=== PATIENT | female | born 1960 | race Caucasian/White ===

== ENCOUNTER → 2016-08-15 | Outpatient (CLI) | payer OTHER ==
[~2016-08-15] MED LIST: AMITRIPTYLINE HCL PO; ASPI81TA85 PO; CELE40TA PO; CLAR10CA3 PO; NIAC50TA PO; PAME50CA PO; PRAV40TA2 PO; ZIAC10TA PO
--- NOTE | 2016-08-24 10:43 | SLEEPHOME ---
DATE OF PROCEDURE: 08/15/2016 INTERPRETATION: A home sleep test was done to evaluate sleep apnea syndrome symptoms consisting of excessive daytime sleepiness, insomnia, snoring, morning headaches, and nonrestorative sleep. He also has the comorbidity of hypertension. Portable home monitoring was performed using a NOX-T3 respiratory monitoring device. Continuous record was supposed to be made of pulse, oxygen saturation, air flow, chest and abdominal strain, and body position. Recording time was 10 hours with the time in bed being 7 hours and 54 minutes. During this interval, a minimum of 93 respiratory events were identified of 10 seconds in duration for a respiratory event index (AYAN) of 11.8. However, this study was severely limited in that there was no pulse or oximetry data available. Therefore, no hypopneas could be considered in these results. We also do not know his baseline saturation or the minimal recorded oxygen saturation value. We do not know the pulse rate. He spent the majority of the study in the lateral position, though he did have some supine time. IMPRESSION: Abnormal home sleep test with a minimum AYAN of 11.8. As noted above, this study was severely limited because of no recording oximetry or pulse data. That means that the index suggests at least mild disease, but I suspect that it is likely higher as no hypopneas were counted. I am concerned about the patient's ability to understand the setup of this type of home study. RECOMMENDATIONS: She has significant symptoms, as well as hypertension, as well as a very limited study that suggests at least mild sleep apnea. I feel that she should [facility] formal evaluation of pressure therapy. I feel this is critical as we need to know her cardiac status, as well as her oxygen status and neither of these would be available with an auto titration device. Pending this intervention, alcohol and sedative usage should be avoided, and care should be taken when operating motor vehicles.
== END ==
LOC: M SLEEP HO 11:57
PROVIDERS: ATTEND Nurse Practitioner Adult Health
DX: G47.30 Sleep apnea, unspecified (principal); I10 Essential (primary) hypertension

== ENCOUNTER → 2016-09-24 | Outpatient (CLI) | payer OTHER ==
--- NOTE | 2016-09-27 08:10 | SLEEPCENT ---
DATE OF PROCEDURE: 09/24/2016 REFERRING PROVIDER: Dr. Kenton Cade INTERPRETATION: Nocturnal polysomnography was performed for the determination of pressure therapy in this patient with at least mild, likely significantly higher obstructive sleep apnea based on home sleep study. Respiratory disturbance index (RDI) was 11.8, but there was no oximetry or pulse data available, so all hypopneas were missed. She had associated symptoms of excessive daytime sleepiness, insomnia, snoring, morning headaches, nonrestorative sleep. A total of 8 hours and 12 minutes of data was reviewed with 438 minutes of sleep observed. Sleep latency was 13.5 minutes. Rapid eye movement (REM) latency was 92.5 minutes. All stages of sleep were observed. Sleep efficiency was 91.9%. She had a very high REM percentage at 41.6%, suggesting rebound REM. Electrocardiogram (EKG) showed what was likely sinus irregularity with an average heart rate of 70 beats per minute. Speeding and slowing was noted surrounding some respiratory events. No epileptiform discharge observed. The patient had been fit with a Resmed Air Fit F20 full face mask of medium size, 4 cm of water pressure had been applied to the circuit, and the lights were dimmed. CPAP was taken to a high of 13 cm of pressure. This pressure appeared to be the best of the pressures that were studied, though it is difficult to tell if it is optimal. On this pressure, her apnea-hypopnea index (AHI) was 3.0 and her KAUR was 0.2. Oxygen saturation jordan was 81%, though a very small amount of time was spent with the saturations less than 90%. Periodic limb movement index was elevated at 48. REM sleep was seen on this pressure. No supine sleep was seen throughout the titration. IMPRESSION: 1. Obstructive sleep apnea, at least mild and likely worse than was suggested by her AYAN, as hypopnea data was missing. She appears to be reasonably palliated on 13 cm of water pressure, though it is not clear at this time that this is optimal. No supine sleep was seen during the titration. 2. Periodic limb movements, moderate. RECOMMENDATIONS: Recommend continuation of CPAP therapy at 13 cm of water pressure via a medium Resmed Air Fit F20 full face mask or mask of her preference. After she is tolerating CPAP therapy, I would recommend an auto CPAP to evaluate the SpO2 waveform to see if there is suggestion of ongoing events, as well as to determine the absolute oxygenation on therapy.
== END ==
LOC: M SLEEP 19:27
PROVIDERS: ATTEND Internal Medicine Pulmonary Disease
DX: G47.33 Obstructive sleep apnea (adult) (pediatric) (principal)

== ENCOUNTER → 2017-01-31 | Outpatient (CLI) | payer MEDICARE, OTHER ==
[~2017-01-31] MED LIST changes: +ALBU0.63 INH; +AMLO25TA PO; +DULE100A IN; +IPRASOL4 IN; +MUCI600T31 PO; +OMEP40CA2 PO; +SITA50TAB PO; +VENTAER IN; +ZONI25CA2 PO
--- NOTE | 2017-01-31 14:06 | REP ---
LOW DOSE LUNG SCREENING CT: Low dose lung screening CT exam is performed in the axial plane without IV contrast. Comparison is made with prior CT of the chest 10/04/2015. There are biapical bullous changes appearing similar to the prior study. Diffuse interstitial fibrotic change is noted. No suspicious nodular opacities are seen. There is no evidence of pleural effusion bilaterally. The heart is mildly enlarged. The mediastinal contour appears unchanged. There are calcifications of the thoracic aorta. There are degenerative changes of the spine. IMPRESSION: Chronic bullous and emphysematous changes in the upper lobes. Chronic fibrosis without suspicious nodular opacity. Recommend followup screening CT in 1 year. Signed by Darell Cerna MD 01/31/2017 05:36 P
== END ==
LOC: M RAD 11:24
PROVIDERS: ATTEND Internal Medicine Pulmonary Disease
DX: Z87.891 Personal history of nicotine dependence (principal)

== ENCOUNTER → 2017-04-05 | Outpatient (REF) | payer MEDICARE, MEDICAID ==
[2017-04-05 14:07] LABS: IMMUNOGLOBULIN G 1530 MG/DL (681-1648); IMMUNOGLOBULIN M 23.6 MG/DL (40-230); TOTAL PROTEIN 8.4 GM/DL (6.4-8.2)
[2017-04-07 00:06] LABS: BETA 2 MICROGLOBULIN 2.8 mg/L (0.6-2.4); FREE KAPPA LIGHT CHAINS SERUM 37.6 mg/L (3.3-19.4); FREE LAMBDA LIGHT CHAINS SERUM 53.1 mg/L (5.7-26.3); KAPPA/LAMBDA RATIO SERUM 0.71 (0.26-1.65)
[2017-04-10 11:16] LABS: ALBUMIN 3.78 GM/DL (3.29-5.55); GAMMA GLOBULIN % 18.9 % (11.1-18.8)
== END ==
LOC: M LAB REF 12:47
PROVIDERS: ATTEND Internal Medicine Medical Oncology
DX: D47.2 Monoclonal gammopathy (principal)

== ENCOUNTER → 2017-04-16 | Outpatient (CLI) | payer MEDICARE, MEDICAID | LOC: M RAD 11:18 | DX: D47.2 Monoclonal gammopathy (principal) | CPT/HCPCS: 70260 ==

== ENCOUNTER → 2017-04-18 | Outpatient (REF) | payer MEDICARE, MEDICAID ==
[2017-04-18 13:32] LABS: URINE TOTAL PROTEIN 56.8 MG/DL (0-12)
[2017-04-18 13:50] LABS: TOTAL PROTEIN 24 HOUR URINE 979.8 MG/24HR (50-150); TOTAL VOLUME, URINE 1725 ML
== END ==
LOC: M LAB REF 12:18
DX: D72.818 Other decreased white blood cell count (principal)
CPT/HCPCS: 81050

== ENCOUNTER 2017-06-02 16:33 | Emergency (ER) | payer MEDICARE, MEDICAID ==
[2017-06-02 18:37] LABS: BASO # 0.1 10^3/uL (0.0-0.2); BASO % 0.4 % (0.0-1.0); EOS # 0.1 10^3/uL (0.0-0.50); EOS % 0.7 % (0.0-3.0); HEMATOCRIT 42.6 % (36.0-47.0); HEMOGLOBIN 14.4 g/dl (12.0-16.0); IMMATURE GRANULOCYTE % 0.6 % (0-3.0); LYMPH # 2.7 10^3/uL (1.5-4.5); MEAN CORPUSCULAR HEMOGLOBIN 29.4 pg (27.0-33.0); MEAN CORPUSCULAR HGB CONC 33.8 g/dl (32.0-36.5); MEAN CORPUSCULAR VOLUME 86.9 fl (80.0-96.0); MONO % 6.4 % (0.0-5.0); NEUTROPHILS # 11.2 10^3/uL (1.8-7.7); NEUTROPHILS % 73.9 % (36.0-66.0); PLATELET COUNT, AUTOMATED 471 10^3/uL (150-450); RED CELL DISTRIBUTION WIDTH 16.2 % (11.5-14.5); WHITE BLOOD COUNT 15.1 10^3/uL (4.0-10.0)
[2017-06-02 18:59] LABS: ALBUMIN 3.5 GM/DL (3.2-5.2); ALBUMIN/GLOBULIN RATIO 0.69 (1.00-1.93); ALKALINE PHOSPHATASE 97 U/L (45-117); ALT/SGPT 34 U/L (12-78); ANION GAP 13 MEQ/L (8-16); AST/SGOT 27 U/L (7-37); BILIRUBIN,DIRECT 0.1 MG/DL (0.0-0.2); BILIRUBIN,TOTAL 0.4 MG/DL (0.2-1.0); BLOOD UREA NITROGEN 18 MG/DL (7-18); CALCIUM LEVEL 8.8 MG/DL (8.5-10.1); CARBON DIOXIDE LEVEL 25 MEQ/L (21-32); CHLORIDE LEVEL 100 MEQ/L (98-107); CREATININE FOR GFR 1.36 MG/DL (0.55-1.30); GLOMERULAR FILTRATION RATE 42.4 (>51); GLUCOSE, FASTING 190 MG/DL (70-100); LIPASE 215 U/L (73-393); POTASSIUM SERUM 4.1 MEQ/L (3.5-5.1); SODIUM LEVEL 138 MEQ/L (136-145); TOTAL PROTEIN 8.6 GM/DL (6.4-8.2)
[2017-06-02 19:07] LABS: INFLUENZA A AMPLIFICATION NEGATIVE (NEGATIVE); INFLUENZA B AMPLIFICATION NEGATIVE (NEGATIVE)
[2017-06-02] MEDS: AUGMENTIN 875 MG TAB PO (21:56)
[2017-06-02] MEDS: predniSONE 20 MG TAB PO (21:57)
== END 2017-06-02 22:13 | disposition home or self-care (01) ==
LOC: M ED 16:33
DX: J32.9 Chronic sinusitis, unspecified (principal); J44.9 Chronic obstructive pulmonary disease, unspecified; Z79.51 Long term (current) use of inhaled steroids; Z79.899 Other long term (current) drug therapy; Z79.82 Long term (current) use of aspirin; Z88.2 Allergy status to sulfonamides; Z88.1 Allergy status to other antibiotic agents
CPT/HCPCS: 83690

== ENCOUNTER → 2017-06-21 | Outpatient (CLI) | payer MEDICARE ==
[2017-06-21 10:40] LABS: BASO # 0.1 10^3/uL (0.0-0.2); BASO % 0.4 % (0.0-1.0); EOS # 0.2 10^3/uL (0.0-0.50); HEMATOCRIT 36.4 % (36.0-47.0); HEMOGLOBIN 11.8 g/dl (12.0-16.0); IMMATURE GRANULOCYTE % 0.5 % (0-3.0); LYMPH # 3.2 10^3/uL (1.5-4.5); LYMPH % 20.8 % (24.0-44.0); MEAN CORPUSCULAR HEMOGLOBIN 28.9 pg (27.0-33.0); MEAN CORPUSCULAR HGB CONC 32.4 g/dl (32.0-36.5); MONO # 0.9 10^3/uL (0.0-0.8); MONO % 6.1 % (0.0-5.0); NEUTROPHILS # 10.9 10^3/uL (1.8-7.7); NEUTROPHILS % 71.2 % (36.0-66.0); PLATELET COUNT, AUTOMATED 450 10^3/uL (150-450); RED BLOOD COUNT 4.09 10^6/uL (4.00-5.40); RED CELL DISTRIBUTION WIDTH 16.3 % (11.5-14.5); WHITE BLOOD COUNT 15.3 10^3/uL (4.0-10.0)
[2017-06-21 10:58] LABS: ALBUMIN 2.7 GM/DL (3.2-5.2); ALBUMIN/GLOBULIN RATIO 0.64 (1.00-1.93); ALKALINE PHOSPHATASE 81 U/L (45-117); ALT/SGPT 19 U/L (12-78); ANION GAP 7 MEQ/L (8-16); AST/SGOT 14 U/L (7-37); BILIRUBIN,TOTAL 0.5 MG/DL (0.2-1.0); BLOOD UREA NITROGEN 9 MG/DL (7-18); CALCIUM LEVEL 8.4 MG/DL (8.5-10.1); CARBON DIOXIDE LEVEL 31 MEQ/L (21-32); CHLORIDE LEVEL 100 MEQ/L (98-107); CREATININE FOR GFR 0.85 MG/DL (0.55-1.30); GLOMERULAR FILTRATION RATE > 60.0 (>51); GLUCOSE, FASTING 195 MG/DL (70-100); POTASSIUM SERUM 3.7 MEQ/L (3.5-5.1); SODIUM LEVEL 138 MEQ/L (136-145); TOTAL PROTEIN 6.9 GM/DL (6.4-8.2)
== END ==
LOC: M LAB 10:11
DX: R50.9 Fever, unspecified (principal)
CPT/HCPCS: 80053

== ENCOUNTER → 2017-08-16 | Outpatient (CLI) | payer MEDICARE | LOC: M RAD 13:12 | DX: R06.02 Shortness of breath (principal) | CPT/HCPCS: 71046 ==

== ENCOUNTER → 2017-08-30 | Outpatient (CLI) | payer MEDICARE ==
[~2017-08-30] MED LIST changes: -ALBU0.63 INH; -AMITRIPTYLINE HCL PO; -AMLO25TA PO; -ASPI81TA85 PO; -CELE40TA PO; -CLAR10CA3 PO; -DULE100A IN; -IPRASOL4 IN; +ISOVUE-370 76% 100ML VIAL (Q9967) As Ordered; -MUCI600T31 PO; -NIAC50TA PO; -OMEP40CA2 PO; -PAME50CA PO; -PRAV40TA2 PO; -SITA50TAB PO; -VENTAER IN; -ZIAC10TA PO; -ZONI25CA2 PO
== END ==
LOC: M RAD 11:24
DX: Z01.812 Encounter for preprocedural laboratory examination (principal); R91.8 Other nonspecific abnormal finding of lung field; I51.7 Cardiomegaly; J90 Pleural effusion, not elsewhere classified; R06.02 Shortness of breath
CPT/HCPCS: Q9967

== ENCOUNTER → 2017-08-30 | Outpatient (REF) | payer MEDICARE ==
[2017-08-30 12:42] LABS: CREATININE FOR GFR 1.12 MG/DL (0.55-1.30)
[2017-08-30 12:42] LABS: BLOOD UREA NITROGEN 20 MG/DL (7-18)
== END ==
LOC: M LAB REF 12:06
DX: Z01.812 Encounter for preprocedural laboratory examination (principal); R06.02 Shortness of breath

== ENCOUNTER → 2017-09-02 | Outpatient (REF) | payer MEDICARE ==
[2017-09-02 13:43] LABS: SLIDE REVIEW Report; SOURCE PERIPHERAL SMEAR; TOTAL PROTEIN,RANDOM URINE 72.5 MG/DL (0.0-12.0); URINE TOTAL PROTEIN 72.5 MG/DL (0-12)
[2017-09-02 14:08] LABS: IMMUNOGLOBULIN G 1170 MG/DL (681-1648); TOTAL PROTEIN 7.5 GM/DL (6.4-8.2)
[2017-09-02 14:24] LABS: IMMUNOGLOBULIN M 19.9 MG/DL (40-230)
[2017-09-03 13:41] LABS: ALBUMIN % 46.6 % (55.8-66.1); ALPHA-1-GLOBULIN % 4.4 % (2.9-4.9); ALPHA-1-GLOBULINS 0.33 GM/DL (0.17-0.41); ALPHA-2-GLOBULINS 1.02 GM/DL (0.42-0.99); ALPHA-2-GLOBULINS % 13.6 % (7.1-11.8); BETA-1-GLOBULINS 0.62 GM/DL (0.28-0.60); BETA-1-GLOBULINS % 8.3 % (4.7-7.2); BETA-2-GLOBULINS 0.77 GM/DL (0.19-0.55); BETA-2-GLOBULINS % 10.2 % (3.2-6.5); GAMMA GLOBULIN % 16.9 % (11.1-18.8); GAMMA GLOBULINS 1.27 GM/DL (0.65-1.58)
[2017-09-04 00:06] LABS: FREE KAPPA LIGHT CHAINS SERUM 30.7 mg/L (3.3-19.4); FREE LAMBDA LIGHT CHAINS SERUM 37.8 mg/L (5.7-26.3); KAPPA/LAMBDA RATIO SERUM 0.81 (0.26-1.65)
[2017-09-04 00:06] LABS: BETA 2 MICROGLOBULIN 2.6 mg/L (0.6-2.4)
[2017-09-05 14:39] LABS: UPEP INTERPRETATION NO M-SPIKE NOTED; URINE VOLUME RANDOM ML
== END ==
LOC: M LAB REF 12:17
DX: D47.2 Monoclonal gammopathy (principal)
CPT/HCPCS: 84165

== ENCOUNTER → 2017-10-05 | Outpatient (CLI) | payer MEDICARE | LOC: M RAD 10:52 | DX: D15.2 Benign neoplasm of mediastinum (principal); R91.8 Other nonspecific abnormal finding of lung field | CPT/HCPCS: 71550 ==

== ENCOUNTER → 2017-11-06 | Outpatient (REF) | payer MEDICARE, OTHER ==
[2017-11-06 13:55] LABS: FERRITIN 76 NG/ML (8-252); IRON (FE) 75 UG/DL (50-170); PERCENT SATURATION 16.8 % (13.2-45.0); TOTAL IRON BINDING CAPACITY 446 UG/DL (250-450)
[2017-11-06 14:35] LABS: VITAMIN B12 LEVEL 260 PG/ML (247-911)
== END ==
LOC: M LAB REF 13:13
DX: D47.2 Monoclonal gammopathy (principal); D72.829 Elevated white blood cell count, unspecified; D47.3 Essential (hemorrhagic) thrombocythemia; Z90.81 Acquired absence of spleen; Z86.718 Personal history of other venous thrombosis and embolism; Z87.891 Personal history of nicotine dependence
CPT/HCPCS: 83550

== ENCOUNTER → 2017-11-21 | Outpatient (REF) | payer MEDICARE | LOC: M LAB REF 12:55 | DX: J44.9 Chronic obstructive pulmonary disease, unspecified (principal) | CPT/HCPCS: 87205 ==

== ENCOUNTER → 2017-11-29 | Outpatient (CLI) | payer MEDICARE ==
[2017-11-29 12:08] LABS: HEMOGLOBIN 13.9 g/dl (12.0-15.5); MEAN CORPUSCULAR HGB CONC 32.3 g/dl (32.0-36.5); MEAN CORPUSCULAR VOLUME 89.6 fl (80.0-96.0); PLATELET COUNT, AUTOMATED 476 10^3/uL (150-450); RED CELL DISTRIBUTION WIDTH 16.8 % (11.5-14.5); WHITE BLOOD COUNT 10.6 10^3/uL (4.0-10.0)
[2017-11-29 12:23] LABS: APPEARANCE, URINE HAZY (CLEAR); BACTERIA, URINE AUTO NEGATIVE (NEGATIVE); BILIRUBIN, URINE AUTO NEGATIVE (NEGATIVE); BLOOD, URINE BLOOD NEGATIVE (NEGATIVE); COLOR, URINE YELLOW (YELLOW); GLUCOSE, URINE (UA) AUTO NEGATIVE (NEGATIVE); KETONE, URINE AUTO NEGATIVE (NEGATIVE); LEUKOCYTE ESTERASE, URINE AUTO NEGATIVE (NEGATIVE); MUCUS, URINE SMALL (NEGATIVE); NITRITE, URINE AUTO NEGATIVE (NEGATIVE); PROTEIN, URINE AUTO 2+ mg/dL (NEGATIVE); RBC, URINE AUTO 5 /HPF (0-3); SPECIFIC GRAVITY URINE AUTO 1.008 (1.002-1.035); SQUAMOUS EPITHELIAL CELL UR AU 5 /HPF (0-6); UROBILINOGEN, URINE AUTO 0.2 mg/dL (0.0-2.0); WBC, URINE AUTO 2 /HPF (0-3)
[2017-11-29 12:27] LABS: INR 1.04; PROTHROMBIN TIME 13.7 SECONDS (12.1-14.4)
[2017-11-29 12:33] LABS: ABG BASE EXCESS 0.8 (-2.0-2.0); ABG HCO3 24.2 MEQ/L (22.0-26.0); ABG O2 SATURATION 94.4 % (95.0-99.0); ABG PARTIAL PRESSURE CO2 34.5 mmHg (35.0-45.0); ABG PARTIAL PRESSURE O2 105.6 mmHg (75.0-100.0); ABG STANDARD HCO3 25.2 MEQ/L (22.0-26.0); ABG TOTAL CO2 25.2 MEQ/L (22.0-29.0); ABG pH (ARTERIAL) 7.463 UNITS (7.350-7.450)
[2017-11-29 12:34] LABS: ANION GAP 9 MEQ/L (8-16); BLOOD UREA NITROGEN 24 MG/DL (7-18); CALCIUM LEVEL 9.3 MG/DL (8.5-10.1); CARBON DIOXIDE LEVEL 28 MEQ/L (21-32); CHLORIDE LEVEL 103 MEQ/L (98-107); CREATININE FOR GFR 1.24 MG/DL (0.55-1.30); GLOMERULAR FILTRATION RATE 47.1 (>51); GLUCOSE, FASTING 114 MG/DL (70-100); PARTIAL THROMBOPLASTIN TIME 27.6 SECONDS (25.4-37.6); SODIUM LEVEL 140 MEQ/L (136-145)
== END ==
LOC: M ADMPAT 10:27
DX: Z01.818 Encounter for other preprocedural examination (principal); J84.10 Pulmonary fibrosis, unspecified; I51.7 Cardiomegaly; J43.9 Emphysema, unspecified
CPT/HCPCS: 71046

== ENCOUNTER 2017-12-03 10:49 | Inpatient (IN) | payer MEDICARE ==
[2017-12-03 11:50] LABS: BEDSIDE GLUCOSE 136 MG/DL (70-105)
[2017-12-03] MEDS ORDERED: fentaNYL 100 MCG/2 ML INJECTION (J3010) As Ordered ×2 (12:31→12:51)
[2017-12-03] MEDS ORDERED: MIDAZOLAM INJ 2 MG/2 ML VIAL (J2250) As Ordered ×3 (12:31→13:20)
[2017-12-03] MEDS ORDERED: ROCURONIUM BROMIDE 50 MG/5 ML VIAL As Ordered (12:45)
[2017-12-03] MEDS ORDERED: LIDOCAINE 2% INJ 100 MG/5 ML SDV (FOR ANES.) As Ordered (12:45)
[2017-12-03] MEDS ORDERED: PROPOFOL 200 MG/20 ML VIAL As Ordered (12:45)
[2017-12-03] MEDS: MIDAZOLAM INJ 2 MG/2 ML VIAL (J2250) IV ×2 (13:07→13:25)
[2017-12-03] MEDS: fentaNYL 100 MCG/2 ML INJECTION (J3010) IV ×2 (13:07→20:53)
[2017-12-03] MEDS ORDERED: METOCLOPRAMIDE INJ 10MG/2ML VIAL (J2765) IV (14:15)
[2017-12-03] MEDS ORDERED: FENTANYL/BUPIVACAINE/NACL BAG 250 ML EPIDURAL (14:15)
[2017-12-03] MEDS ORDERED: WALLBOXKEY XX (14:15)
[2017-12-03] MEDS ORDERED: EPIDURAL/PCA KEYS XX (14:15)
[2017-12-03] MEDS ORDERED: ONDANSETRON 4MG/2ML VIAL (J2405) IV ×3 (14:15→18:00)
[2017-12-03] MEDS ORDERED: NALOXONE INJ 0.4 MG/1 ML VIAL (J2310) IV (14:15)
[2017-12-03] MEDS: CETACAINE SPRAY 5GM As Ordered ×2 (14:18→17:50)
[2017-12-03] MEDS ORDERED: dexameTHASONE 4 MG/ML 1ML VIAL (J1100) As Ordered (14:35)
[2017-12-03] MEDS ORDERED: HYDROmorphone HCL 2 MG/ML 1ML VIAL (J1170) As Ordered (15:03)
[2017-12-03] MEDS: MUPIROCIN 2% OINT 22 GM TUBE TOP (15:06)
[2017-12-03] MEDS ORDERED: SUGAMMADEX SODIUM 500 MG/5 ML VIAL (BRIDION) As Ordered (17:10)
[2017-12-03] MEDS ORDERED: ONDANSETRON 4MG/2ML VIAL (J2405) As Ordered (17:10)
[2017-12-03] MEDS: BUPIVACAINE LIPOSOME/PF 1.3% 20 ML VIAL (13.3MG/ML)(EXPAREL) As Ordered (17:14)
[2017-12-03] MEDS: BUPIVACAINE HCL 0.5% 10 ML VIAL As Ordered (17:14)
[2017-12-03] MEDS ORDERED: zolPIDEM TARTRATE 5 MG TAB PO (17:30)
[2017-12-03] MEDS ORDERED: LEVALBUTEROL 1.25 MG/0.5 ML CONCENTRATE NEB NEB (17:30)
[2017-12-03] MEDS ORDERED: GLUCOSE 4 GM CHEW TABLET PO (17:30)
[2017-12-03] MEDS ORDERED: DEXTROSE 50% 50 ML SYRINGE IV (17:30)
[2017-12-03] MEDS ORDERED: ACETAMINOPHEN TAB 650MG DOSE (2X325MG) PO (17:30)
[2017-12-03] MEDS ORDERED: BISACODYL 10 MG SUPP PR (17:30)
[2017-12-03] MEDS ORDERED: GLUCAGON FOR INJ 1 MG VIAL (J1610) SC (17:30)
[2017-12-03 17:45] LABS: BEDSIDE GLUCOSE 195 MG/DL (70-105)
[2017-12-03] MEDS ORDERED: MORPHINE 10 MG/ML 1ML VIAL (J2270) IV (18:00)
[2017-12-03] MEDS ORDERED: fentaNYL 100 MCG/2 ML INJECTION (J3010) IV (18:00)
[2017-12-03] MEDS ORDERED: PERCOCET 5MG/325MG TAB PO (18:00)
[2017-12-03 18:10] LABS: BASO # 0.1 10^3/uL (0.0-0.2); BASO % 0.4 % (0.0-1.0); EOS % 0.1 % (0.0-3.0); HEMATOCRIT 45.3 % (36.0-47.0); HEMOGLOBIN 13.9 g/dl (12.0-15.5); IMMATURE GRANULOCYTE % 0.6 % (0-3.0); LYMPH # 0.7 10^3/uL (1.5-4.5); LYMPH % 4.1 % (24.0-44.0); MEAN CORPUSCULAR HEMOGLOBIN 29.3 pg (27.0-33.0); MEAN CORPUSCULAR HGB CONC 30.7 g/dl (32.0-36.5); MEAN CORPUSCULAR VOLUME 95.4 fl (80.0-96.0); MONO # 0.4 10^3/uL (0.0-0.8); MONO % 2.2 % (0.0-5.0); NEUTROPHILS # 16.5 10^3/uL (1.8-7.7); NEUTROPHILS % 92.6 % (36.0-66.0); PLATELET COUNT, AUTOMATED 431 10^3/uL (150-450); RED BLOOD COUNT 4.75 10^6/uL (4.00-5.40); RED CELL DISTRIBUTION WIDTH 17.3 % (11.5-14.5); WHITE BLOOD COUNT 17.8 10^3/uL (4.0-10.0)
[2017-12-03 18:30] LABS: ABG BASE EXCESS -3.3 (-2.0-2.0); ABG HCO3 25.1 MEQ/L (22.0-26.0); ABG O2 SATURATION 93.6 % (95.0-99.0); ABG PARTIAL PRESSURE CO2 60.1 mmHg (35.0-45.0); ABG STANDARD HCO3 21.7 MEQ/L (22.0-26.0)
[2017-12-03 18:33] LABS: ABG pH (ARTERIAL) 7.239 UNITS (7.350-7.450)
[2017-12-03] MEDS: NALOXONE INJ 0.4 MG/1 ML VIAL (J2310) IV (18:35)
[2017-12-03 18:46] LABS: ANION GAP 10 MEQ/L (8-16); BLOOD UREA NITROGEN 20 MG/DL (7-18); CALCIUM LEVEL 8.7 MG/DL (8.5-10.1); CARBON DIOXIDE LEVEL 24 MEQ/L (21-32); CHLORIDE LEVEL 103 MEQ/L (98-107); CREATININE FOR GFR 1.39 MG/DL (0.55-1.30); GLOMERULAR FILTRATION RATE 41.3 (>51); GLUCOSE, FASTING 182 MG/DL (70-100); SODIUM LEVEL 137 MEQ/L (136-145)
[2017-12-03 18:49] LABS: POTASSIUM SERUM 5.2 MEQ/L (3.5-5.1)
[2017-12-03] MEDS: LEVALBUTEROL 1.25 MG/0.5 ML CONCENTRATE NEB NEB (20:00)
[2017-12-03 20:12] LABS: BEDSIDE GLUCOSE 195 MG/DL (70-105)
[2017-12-03] MEDS: SPIRONOLACTONE 25 MG TAB PO (20:30)
[2017-12-03] MEDS: HEPARIN SOD (PORCINE) 5000 UNITS/ML VIAL SC (20:30)
[2017-12-03] MEDS: KCL 20MEQ IN D5/NS 1000ML 1,000 ML IV (20:31)
[2017-12-03] MEDS: MAGNESIUM OXIDE 400 MG TAB (MAG-OX) PO (20:31)
[2017-12-03] MEDS: DOCUSATE SODIUM 100 MG CAP PO (20:31)
[2017-12-03] MEDS: LR 1,000 ML IV ×2 (20:52→20:53)
[2017-12-03 21:34] LABS: ABG BASE EXCESS -2.9 (-2.0-2.0); ABG DEVICE NONREBREATH; ABG HCO3 23.4 MEQ/L (22.0-26.0); ABG O2 SATURATION 91.7 % (95.0-99.0); ABG PARTIAL PRESSURE CO2 46.6 mmHg (35.0-45.0); ABG PARTIAL PRESSURE O2 78.7 mmHg (75.0-100.0); ABG STANDARD HCO3 21.9 MEQ/L (22.0-26.0); ABG TOTAL CO2 24.8 MEQ/L (22.0-29.0); ABG pH (ARTERIAL) 7.319 UNITS (7.350-7.450)
[2017-12-03] MEDS: ceFAZolin SOD 1 GM in D5W MINI-BAG PLUS 50 ML IV (22:09)
[2017-12-03] MEDS: KETOROLAC 30 MG/ML VIAL (J1885) IV (22:09)
[2017-12-04 00:28] LABS: BEDSIDE GLUCOSE 194 MG/DL (70-105)
[2017-12-04] MEDS: LEVALBUTEROL 1.25 MG/0.5 ML CONCENTRATE NEB NEB ×4 (02:00→21:22)
[2017-12-04] MEDS: KETOROLAC 30 MG/ML VIAL (J1885) IV ×4 (04:05→22:41)
[2017-12-04 05:08] LABS: BASO % 0.1 % (0.0-1.0); EOS % 0.2 % (0.0-3.0); HEMATOCRIT 37.5 % (36.0-47.0); IMMATURE GRANULOCYTE % 0.4 % (0-3.0); LYMPH # 1.2 10^3/uL (1.5-4.5); LYMPH % 9.2 % (24.0-44.0); MEAN CORPUSCULAR HEMOGLOBIN 28.9 pg (27.0-33.0); MEAN CORPUSCULAR HGB CONC 31.7 g/dl (32.0-36.5); MONO # 0.9 10^3/uL (0.0-0.8); MONO % 6.7 % (0.0-5.0); NEUTROPHILS # 10.8 10^3/uL (1.8-7.7); NEUTROPHILS % 83.4 % (36.0-66.0); PLATELET COUNT, AUTOMATED 398 10^3/uL (150-450); RED BLOOD COUNT 4.12 10^6/uL (4.00-5.40); RED CELL DISTRIBUTION WIDTH 16.6 % (11.5-14.5); WHITE BLOOD COUNT 12.9 10^3/uL (4.0-10.0)
[2017-12-04 05:12] LABS: HEMOGLOBIN 11.9 g/dl (12.0-15.5)
[2017-12-04 05:41] LABS: ANION GAP 9 MEQ/L (8-16); BLOOD UREA NITROGEN 17 MG/DL (7-18); CALCIUM LEVEL 7.9 MG/DL (8.5-10.1); CARBON DIOXIDE LEVEL 24 MEQ/L (21-32); CHLORIDE LEVEL 103 MEQ/L (98-107); CREATININE FOR GFR 1.24 MG/DL (0.55-1.30); GLOMERULAR FILTRATION RATE 47.1 (>51); GLUCOSE, FASTING 176 MG/DL (70-100); POTASSIUM SERUM 4.5 MEQ/L (3.5-5.1); SODIUM LEVEL 136 MEQ/L (136-145)
[2017-12-04 06:21] LABS: ABG BASE EXCESS -1.9 (-2.0-2.0); ABG HCO3 23.6 MEQ/L (22.0-26.0); ABG O2 SATURATION 91.7 % (95.0-99.0); ABG PARTIAL PRESSURE CO2 43.4 mmHg (35.0-45.0); ABG PARTIAL PRESSURE O2 76.7 mmHg (75.0-100.0); ABG STANDARD HCO3 22.8 MEQ/L (22.0-26.0); ABG pH (ARTERIAL) 7.354 UNITS (7.350-7.450)
[2017-12-04 06:36] LABS: BEDSIDE GLUCOSE 156 MG/DL (70-105)
[2017-12-04] MEDS: HumaLOG INSULIN (NovoLOG) PER UNIT SC ×4 (07:30→17:20)
[2017-12-04] MEDS: ceFAZolin SOD 1 GM in D5W MINI-BAG PLUS 50 ML IV ×3 (07:50→22:41)
[2017-12-04] MEDS: diphenhydrAMINE INJ 50MG/ML VIAL (J1200) IV (07:51)
[2017-12-04] MEDS: TIOTROPIUM INHALER/CAPSULE (SPIRIVA) INH (08:44)
[2017-12-04] MEDS: MOM 30ML SUSPENSION UDC PO (09:06)
[2017-12-04] MEDS: LORATADINE 10 MG TAB PO (09:07)
[2017-12-04] MEDS: ESCITALOPRAM OXALATE 10 MG TAB (LEXAPRO) PO (09:08)
[2017-12-04] MEDS: NORTRIPTYLINE 25 MG CAP PO (09:08)
[2017-12-04] MEDS: ASPIRIN 81 MG ENTERIC TAB PO (09:08)
[2017-12-04] MEDS: PANTOPRAZOLE 40MG TAB (PROTONIX) PO (09:08)
[2017-12-04] MEDS: SPIRONOLACTONE 25 MG TAB PO ×2 (09:09→21:01)
[2017-12-04] MEDS: MAGNESIUM OXIDE 400 MG TAB (MAG-OX) PO ×2 (09:09→21:01)
[2017-12-04] MEDS: PRAVASTATIN 20 MG TAB PO (09:09)
[2017-12-04] MEDS: SITagliptin 50 MG TAB (JANUVIA) PO (09:09)
[2017-12-04] MEDS: DOCUSATE SODIUM 100 MG CAP PO ×2 (09:10→21:01)
[2017-12-04] MEDS: CYANOCOBALAMIN 500 MCG TAB PO (09:10)
[2017-12-04] MEDS: FUROSEMIDE 20 MG TAB PO ×2 (09:10→17:20)
[2017-12-04] MEDS: amLODIPine 5 MG TAB PO (09:11)
[2017-12-04] MEDS: FERROUS SULFATE 325MG TAB PO (09:11)
[2017-12-04] MEDS: HEPARIN SOD (PORCINE) 5000 UNITS/ML VIAL SC ×2 (09:12→21:01)
[2017-12-04] MEDS: ZONISAMIDE 25 MG CAP (ZONEGRAN) PO (10:38)
[2017-12-04 12:17] LABS: BEDSIDE GLUCOSE 130 MG/DL (70-105)
[2017-12-04] MEDS: BUPIVACAINE/NACL BAG 250 ML EPIDURAL (12:27)
[2017-12-04 16:57] LABS: BEDSIDE GLUCOSE 191 MG/DL (70-105)
[2017-12-04 21:34] LABS: BEDSIDE GLUCOSE 187 MG/DL (70-105)
[2017-12-05] MEDS: LEVALBUTEROL 1.25 MG/0.5 ML CONCENTRATE NEB NEB ×4 (02:00→20:39)
[2017-12-05] MEDS: PERCOCET 5MG/325MG TAB PO ×5 (03:57→23:22)
[2017-12-05] MEDS: BUPIVACAINE/NACL BAG 250 ML EPIDURAL (04:00)
[2017-12-05] MEDS: KETOROLAC 30 MG/ML VIAL (J1885) IV ×4 (05:18→22:24)
[2017-12-05 05:53] LABS: BASO % 0.3 % (0.0-1.0); EOS # 0.1 10^3/uL (0.0-0.50); EOS % 0.6 % (0.0-3.0); HEMATOCRIT 36.5 % (36.0-47.0); HEMOGLOBIN 11.6 g/dl (12.0-15.5); IMMATURE GRANULOCYTE % 0.6 % (0-3.0); LYMPH # 3.1 10^3/uL (1.5-4.5); LYMPH % 22.9 % (24.0-44.0); MEAN CORPUSCULAR HEMOGLOBIN 28.6 pg (27.0-33.0); MEAN CORPUSCULAR HGB CONC 31.8 g/dl (32.0-36.5); MEAN CORPUSCULAR VOLUME 90.1 fl (80.0-96.0); MONO # 1.2 10^3/uL (0.0-0.8); MONO % 8.9 % (0.0-5.0); NEUTROPHILS # 9.1 10^3/uL (1.8-7.7); NEUTROPHILS % 66.7 % (36.0-66.0); PLATELET COUNT, AUTOMATED 375 10^3/uL (150-450); RED BLOOD COUNT 4.05 10^6/uL (4.00-5.40); RED CELL DISTRIBUTION WIDTH 16.9 % (11.5-14.5); WHITE BLOOD COUNT 13.6 10^3/uL (4.0-10.0)
[2017-12-05 06:10] LABS: ANION GAP 10 MEQ/L (8-16); CALCIUM LEVEL 8.1 MG/DL (8.5-10.1); CARBON DIOXIDE LEVEL 23 MEQ/L (21-32); CHLORIDE LEVEL 100 MEQ/L (98-107); CREATININE FOR GFR 1.72 MG/DL (0.55-1.30); GLOMERULAR FILTRATION RATE 32.3 (>51); GLUCOSE, FASTING 155 MG/DL (70-100); POTASSIUM SERUM 4.2 MEQ/L (3.5-5.1); SODIUM LEVEL 133 MEQ/L (136-145)
[2017-12-05 06:21] LABS: BLOOD UREA NITROGEN 30 MG/DL (7-18)
[2017-12-05] MEDS: ceFAZolin SOD 1 GM in D5W MINI-BAG PLUS 50 ML IV ×3 (07:12→23:22)
[2017-12-05] MEDS: TIOTROPIUM INHALER/CAPSULE (SPIRIVA) INH (07:40)
[2017-12-05] MEDS: NORCO, ANEXSIA 5/325MG TABLET (HYDROcodone/ACETAMINOPHEN) PO (08:02)
[2017-12-05] MEDS: HumaLOG INSULIN (NovoLOG) PER UNIT SC ×3 (08:03→17:45)
[2017-12-05] MEDS: ASPIRIN 81 MG ENTERIC TAB PO (10:25)
[2017-12-05] MEDS: MAGNESIUM OXIDE 400 MG TAB (MAG-OX) PO ×3 (10:25→21:19)
[2017-12-05] MEDS: LORATADINE 10 MG TAB PO (10:25)
[2017-12-05] MEDS: CYANOCOBALAMIN 500 MCG TAB PO ×2 (10:25→10:39)
[2017-12-05] MEDS: ESCITALOPRAM OXALATE 10 MG TAB (LEXAPRO) PO (10:25)
[2017-12-05] MEDS: FERROUS SULFATE 325MG TAB PO (10:25)
[2017-12-05] MEDS: MOM 30ML SUSPENSION UDC PO ×2 (10:26→10:39)
[2017-12-05] MEDS: amLODIPine 5 MG TAB PO ×2 (10:26→10:39)
[2017-12-05] MEDS: DOCUSATE SODIUM 100 MG CAP PO ×3 (10:26→21:20)
[2017-12-05] MEDS: PANTOPRAZOLE 40MG TAB (PROTONIX) PO (10:37)
[2017-12-05] MEDS: NORTRIPTYLINE 25 MG CAP PO (10:38)
[2017-12-05] MEDS: SITagliptin 50 MG TAB (JANUVIA) PO (10:38)
[2017-12-05] MEDS: ZONISAMIDE 25 MG CAP (ZONEGRAN) PO (10:38)
[2017-12-05] MEDS: PRAVASTATIN 20 MG TAB PO (10:39)
[2017-12-05] MEDS: HEPARIN SOD (PORCINE) 5000 UNITS/ML VIAL SC ×2 (10:41→21:19)
[2017-12-05 11:55] LABS: BEDSIDE GLUCOSE 159 MG/DL (70-105)
[2017-12-05] MEDS: FUROSEMIDE 20 MG TAB PO ×2 (12:57→17:44)
[2017-12-05] MEDS: SPIRONOLACTONE 25 MG TAB PO ×2 (12:57→21:19)
[2017-12-05 17:22] LABS: BEDSIDE GLUCOSE 167 MG/DL (70-105)
[2017-12-06] MEDS: LEVALBUTEROL 1.25 MG/0.5 ML CONCENTRATE NEB NEB ×4 (02:00→21:09)
[2017-12-06] MEDS: KETOROLAC 30 MG/ML VIAL (J1885) IV (04:06)
[2017-12-06] MEDS: BUPIVACAINE/NACL BAG 250 ML EPIDURAL (05:09)
[2017-12-06] MEDS: PERCOCET 5MG/325MG TAB PO (05:19)
[2017-12-06] MEDS: ceFAZolin SOD 1 GM in D5W MINI-BAG PLUS 50 ML IV (06:14)
[2017-12-06 06:54] LABS: BEDSIDE GLUCOSE 176 MG/DL (70-105)
[2017-12-06 07:24] LABS: BASO # 0.1 10^3/uL (0.0-0.2); BASO % 0.4 % (0.0-1.0); EOS # 0.3 10^3/uL (0.0-0.50); EOS % 2.2 % (0.0-3.0); HEMATOCRIT 37.2 % (36.0-47.0); HEMOGLOBIN 11.9 g/dl (12.0-15.5); IMMATURE GRANULOCYTE % 0.7 % (0-3.0); LYMPH # 1.8 10^3/uL (1.5-4.5); LYMPH % 12.8 % (24.0-44.0); MEAN CORPUSCULAR HEMOGLOBIN 29.3 pg (27.0-33.0); MEAN CORPUSCULAR VOLUME 91.6 fl (80.0-96.0); MONO % 7.2 % (0.0-5.0); NEUTROPHILS # 10.6 10^3/uL (1.8-7.7); NEUTROPHILS % 76.7 % (36.0-66.0); PLATELET COUNT, AUTOMATED 360 10^3/uL (150-450); RED BLOOD COUNT 4.06 10^6/uL (4.00-5.40); WHITE BLOOD COUNT 13.8 10^3/uL (4.0-10.0)
[2017-12-06] MEDS: TIOTROPIUM INHALER/CAPSULE (SPIRIVA) INH (07:35)
[2017-12-06 07:58] LABS: ANION GAP 9 MEQ/L (8-16); BLOOD UREA NITROGEN 24 MG/DL (7-18); CALCIUM LEVEL 8.4 MG/DL (8.5-10.1); CARBON DIOXIDE LEVEL 26 MEQ/L (21-32); CHLORIDE LEVEL 102 MEQ/L (98-107); CREATININE FOR GFR 1.26 MG/DL (0.55-1.30); GLOMERULAR FILTRATION RATE 46.3 (>51); GLUCOSE, FASTING 171 MG/DL (70-100); POTASSIUM SERUM 4.7 MEQ/L (3.5-5.1); SODIUM LEVEL 137 MEQ/L (136-145)
[2017-12-06] MEDS: HEPARIN SOD (PORCINE) 5000 UNITS/ML VIAL SC ×2 (09:00→20:26)
[2017-12-06] MEDS: HumaLOG INSULIN (NovoLOG) PER UNIT SC ×3 (09:24→17:25)
[2017-12-06] MEDS: MOM 30ML SUSPENSION UDC PO (09:25)
[2017-12-06] MEDS: PRAVASTATIN 20 MG TAB PO (09:25)
[2017-12-06] MEDS: FERROUS SULFATE 325MG TAB PO (09:25)
[2017-12-06] MEDS: NORTRIPTYLINE 25 MG CAP PO (09:25)
[2017-12-06] MEDS: amLODIPine 5 MG TAB PO (09:26)
[2017-12-06] MEDS: ESCITALOPRAM OXALATE 10 MG TAB (LEXAPRO) PO (09:26)
[2017-12-06] MEDS: SPIRONOLACTONE 25 MG TAB PO ×2 (09:26→20:21)
[2017-12-06] MEDS: FUROSEMIDE 20 MG TAB PO ×2 (09:26→17:25)
[2017-12-06] MEDS: DOCUSATE SODIUM 100 MG CAP PO ×2 (09:26→20:21)
[2017-12-06] MEDS: NORCO, ANEXSIA 5/325MG TABLET (HYDROcodone/ACETAMINOPHEN) PO ×3 (09:27→23:39)
[2017-12-06] MEDS: PANTOPRAZOLE 40MG TAB (PROTONIX) PO (09:27)
[2017-12-06] MEDS: LORATADINE 10 MG TAB PO (09:27)
[2017-12-06] MEDS: MAGNESIUM OXIDE 400 MG TAB (MAG-OX) PO ×2 (09:27→20:22)
[2017-12-06] MEDS: ZONISAMIDE 25 MG CAP (ZONEGRAN) PO (09:28)
[2017-12-06] MEDS: SITagliptin 50 MG TAB (JANUVIA) PO (09:28)
[2017-12-06] MEDS: CYANOCOBALAMIN 500 MCG TAB PO (09:28)
[2017-12-06] MEDS: ASPIRIN 81 MG ENTERIC TAB PO (09:28)
[2017-12-06 12:28] LABS: BEDSIDE GLUCOSE 132 MG/DL (70-105)
[2017-12-06 17:15] LABS: BEDSIDE GLUCOSE 140 MG/DL (70-105)
[2017-12-06 20:22] LABS: BEDSIDE GLUCOSE 145 MG/DL (70-105)
[2017-12-07] MEDS: LEVALBUTEROL 1.25 MG/0.5 ML CONCENTRATE NEB NEB ×2 (02:00→07:29)
[2017-12-07 05:34] LABS: BASO % 0.4 % (0.0-1.0); EOS # 0.4 10^3/uL (0.0-0.50); HEMATOCRIT 35.3 % (36.0-47.0); HEMOGLOBIN 11.4 g/dl (12.0-15.5); IMMATURE GRANULOCYTE % 0.5 % (0-3.0); LYMPH # 2.9 10^3/uL (1.5-4.5); LYMPH % 27.1 % (24.0-44.0); MEAN CORPUSCULAR HEMOGLOBIN 29.5 pg (27.0-33.0); MEAN CORPUSCULAR HGB CONC 32.3 g/dl (32.0-36.5); MEAN CORPUSCULAR VOLUME 91.2 fl (80.0-96.0); MONO # 0.9 10^3/uL (0.0-0.8); MONO % 8.6 % (0.0-5.0); NEUTROPHILS # 6.3 10^3/uL (1.8-7.7); NEUTROPHILS % 59.4 % (36.0-66.0); PLATELET COUNT, AUTOMATED 393 10^3/uL (150-450); RED BLOOD COUNT 3.87 10^6/uL (4.00-5.40); RED CELL DISTRIBUTION WIDTH 16.9 % (11.5-14.5); WHITE BLOOD COUNT 10.5 10^3/uL (4.0-10.0)
[2017-12-07 05:48] LABS: ANION GAP 8 MEQ/L (8-16); BLOOD UREA NITROGEN 17 MG/DL (7-18); CALCIUM LEVEL 8.8 MG/DL (8.5-10.1); CARBON DIOXIDE LEVEL 30 MEQ/L (21-32); CHLORIDE LEVEL 101 MEQ/L (98-107); CREATININE FOR GFR 0.99 MG/DL (0.55-1.30); GLOMERULAR FILTRATION RATE > 60.0 (>51); GLUCOSE, FASTING 128 MG/DL (70-100); SODIUM LEVEL 139 MEQ/L (136-145)
[2017-12-07] MEDS: TIOTROPIUM INHALER/CAPSULE (SPIRIVA) INH (07:29)
[2017-12-07] MEDS: MOM 30ML SUSPENSION UDC PO (09:14)
[2017-12-07] MEDS: HEPARIN SOD (PORCINE) 5000 UNITS/ML VIAL SC (09:14)
[2017-12-07] MEDS: LORATADINE 10 MG TAB PO (09:15)
[2017-12-07] MEDS: MAGNESIUM OXIDE 400 MG TAB (MAG-OX) PO (09:15)
[2017-12-07] MEDS: SITagliptin 50 MG TAB (JANUVIA) PO (09:15)
[2017-12-07] MEDS: HumaLOG INSULIN (NovoLOG) PER UNIT SC (09:15)
[2017-12-07] MEDS: ESCITALOPRAM OXALATE 10 MG TAB (LEXAPRO) PO (09:15)
[2017-12-07] MEDS: PANTOPRAZOLE 40MG TAB (PROTONIX) PO (09:15)
[2017-12-07] MEDS: SPIRONOLACTONE 25 MG TAB PO (09:15)
[2017-12-07] MEDS: PRAVASTATIN 20 MG TAB PO (09:16)
[2017-12-07] MEDS: NORTRIPTYLINE 25 MG CAP PO (09:16)
[2017-12-07] MEDS: FERROUS SULFATE 325MG TAB PO (09:16)
[2017-12-07] MEDS: CYANOCOBALAMIN 500 MCG TAB PO (09:16)
[2017-12-07] MEDS: ASPIRIN 81 MG ENTERIC TAB PO (09:16)
[2017-12-07] MEDS: FUROSEMIDE 20 MG TAB PO (09:16)
[2017-12-07] MEDS: DOCUSATE SODIUM 100 MG CAP PO (09:16)
[2017-12-07] MEDS: ZONISAMIDE 25 MG CAP (ZONEGRAN) PO (09:16)
[2017-12-07] MEDS: amLODIPine 5 MG TAB PO (09:16)
[2017-12-07] MEDS: NORCO, ANEXSIA 5/325MG TABLET (HYDROcodone/ACETAMINOPHEN) PO (09:17)
== END 2017-12-07 11:22 | disposition home or self-care (01) | DRG 165 ==
LOC: M OR 10:49 → M ICU 19:25 → M PCU 12-04 14:19
PROVIDERS: Thoracic Surgery (Cardiothoracic Vascular Surgery)
PROC: 0BBC4ZZ Excision of Right Upper Lung Lobe, Percutaneous Endoscopic Approach (ICD-10-PCS; principal; 2017-12-03 12:15)
PROC: 0BBD4ZX Excision of Right Middle Lung Lobe, Percutaneous Endoscopic Approach, Diagnostic (ICD-10-PCS; 2017-12-03 12:15)
PROC: 0WBC4ZX Excision of Mediastinum, Percutaneous Endoscopic Approach, Diagnostic (ICD-10-PCS; 2017-12-03 12:15)
DX: J84.9 Interstitial pulmonary disease, unspecified (principal); E32.8 Other diseases of thymus; G47.33 Obstructive sleep apnea (adult) (pediatric); I73.9 Peripheral vascular disease, unspecified; J43.9 Emphysema, unspecified; I10 Essential (primary) hypertension; E78.5 Hyperlipidemia, unspecified; G83.9 Paralytic syndrome, unspecified; R53.1 Weakness; Z87.891 Personal history of nicotine dependence; Z79.82 Long term (current) use of aspirin; Z79.899 Other long term (current) drug therapy; Z88.2 Allergy status to sulfonamides; T41.3X5A Adverse effect of local anesthetics, initial encounter; Z88.8 Allergy status to other drugs, medicaments and biological substances

== ENCOUNTER → 2017-12-19 | Outpatient (CLI) | payer MEDICARE | LOC: M SMT 09:35 | DX: J43.1 Panlobular emphysema (principal); D48.9 Neoplasm of uncertain behavior, unspecified | CPT/HCPCS: 71046 ==

== ENCOUNTER 2018-01-03 09:29 | Emergency (ER) | payer MEDICARE ==
[2018-01-03] MEDS: NS 1,000 ML IV (10:11)
[2018-01-03 10:34] LABS: BASO # 0.1 10^3/uL (0.0-0.2); BASO % 0.5 % (0.0-1.0); EOS # 0.7 10^3/uL (0.0-0.50); EOS % 5.4 % (0.0-3.0); HEMOGLOBIN 13.9 g/dl (12.0-15.5); IMMATURE GRANULOCYTE % 0.5 % (0-3.0); LYMPH % 15.1 % (24.0-44.0); MEAN CORPUSCULAR HEMOGLOBIN 28.3 pg (27.0-33.0); MEAN CORPUSCULAR HGB CONC 32.3 g/dl (32.0-36.5); MEAN CORPUSCULAR VOLUME 87.6 fl (80.0-96.0); MONO # 0.9 10^3/uL (0.0-0.8); MONO % 6.8 % (0.0-5.0); NEUTROPHILS # 9.4 10^3/uL (1.8-7.7); NEUTROPHILS % 71.7 % (36.0-66.0); PLATELET COUNT, AUTOMATED 531 10^3/uL (150-450); RED BLOOD COUNT 4.91 10^6/uL (4.00-5.40); RED CELL DISTRIBUTION WIDTH 16.4 % (11.5-14.5); WHITE BLOOD COUNT 13.1 10^3/uL (4.0-10.0)
[2018-01-03 11:02] LABS: CALCIUM OXALATE CRYSTALS RFX SMALL; KETONE, URINE AUTO RFX NEGATIVE (NEGATIVE); LEUKOCYTE ESTERASE UR AUTO RFX NEGATIVE (NEGATIVE); NITRITE, URINE AUTO RFX NEGATIVE (NEGATIVE); RBC, URINE AUTO RFX 3 /HPF (0-3); SPECIFIC GRAVITY UR AUTO RFX 1.009 (1.002-1.035); SQUAM EPITHELIAL CELL UR AURFX 3 /HPF (0-6); WBC, URINE AUTO RFX 1 /HPF (0-3)
[2018-01-03 11:05] LABS: ALBUMIN 3.2 GM/DL (3.2-5.2); ALBUMIN/GLOBULIN RATIO 0.52 (1.00-1.93); ALKALINE PHOSPHATASE 116 U/L (45-117); ALT/SGPT 15 U/L (12-78); AMYLASE 28 U/L (25-115); ANION GAP 12 MEQ/L (8-16); AST/SGOT 14 U/L (7-37); BILIRUBIN,DIRECT 0.1 MG/DL (0.0-0.2); BILIRUBIN,TOTAL 0.5 MG/DL (0.2-1.0); BLOOD UREA NITROGEN 20 MG/DL (7-18); CALCIUM LEVEL 9.9 MG/DL (8.5-10.1); CARBON DIOXIDE LEVEL 25 MEQ/L (21-32); CHLORIDE LEVEL 97 MEQ/L (98-107); CREATININE FOR GFR 1.23 MG/DL (0.55-1.30); GLOMERULAR FILTRATION RATE 47.6 (>51); GLUCOSE, FASTING 143 MG/DL (70-100); LIPASE 165 U/L (73-393); POTASSIUM SERUM 4.1 MEQ/L (3.5-5.1); SODIUM LEVEL 134 MEQ/L (136-145); TOTAL PROTEIN 9.3 GM/DL (6.4-8.2)
[2018-01-03] MEDS ORDERED: ISOVUE-370 76% 100ML VIAL (Q9967) As Ordered (11:07)
== END 2018-01-03 12:52 | disposition home or self-care (01) ==
LOC: M ED 09:29
DX: R10.84 Generalized abdominal pain (principal); R19.7 Diarrhea, unspecified; E11.9 Type 2 diabetes mellitus without complications; I10 Essential (primary) hypertension; Z86.718 Personal history of other venous thrombosis and embolism; E78.00 Pure hypercholesterolemia, unspecified; J45.909 Unspecified asthma, uncomplicated; G47.30 Sleep apnea, unspecified; K52.9 Noninfective gastroenteritis and colitis, unspecified; M54.9 Dorsalgia, unspecified; F41.9 Anxiety disorder, unspecified; F32.9 Major depressive disorder, single episode, unspecified; Z87.01 Personal history of pneumonia (recurrent); Z87.09 Personal history of other diseases of the respiratory system; Z87.891 Personal history of nicotine dependence; Z79.82 Long term (current) use of aspirin; Z79.899 Other long term (current) drug therapy; Z88.2 Allergy status to sulfonamides; Z88.1 Allergy status to other antibiotic agents; Z88.8 Allergy status to other drugs, medicaments and biological substances
CPT/HCPCS: Q9967

== ENCOUNTER → 2018-01-04 | Outpatient (REF) | payer MEDICARE | LOC: M LAB REF 08:30 | DX: Z00.00 Encounter for general adult medical examination without abnormal findings (principal) | CPT/HCPCS: 87507 ==

== ENCOUNTER → 2018-01-09 | Outpatient (CLI) | payer MEDICARE | LOC: M SMT 08:07 | DX: D15.2 Benign neoplasm of mediastinum (principal); Z98.890 Other specified postprocedural states | CPT/HCPCS: 71046 ==

== ENCOUNTER → 2018-01-21 | Outpatient (CLI) | payer MEDICARE ==
[2018-01-21 10:43] LABS: BASO # 0.1 10^3/uL (0.0-0.2); BASO % 0.5 % (0.0-1.0); EOS # 0.3 10^3/uL (0.0-0.50); EOS % 2.2 % (0.0-3.0); HEMOGLOBIN 12.8 g/dl (12.0-15.5); IMMATURE GRANULOCYTE % 0.7 % (0-3.0); LYMPH # 2.7 10^3/uL (1.5-4.5); LYMPH % 20.9 % (24.0-44.0); MEAN CORPUSCULAR HEMOGLOBIN 28.3 pg (27.0-33.0); MEAN CORPUSCULAR VOLUME 88.5 fl (80.0-96.0); MONO # 0.8 10^3/uL (0.0-0.8); MONO % 6.2 % (0.0-5.0); NEUTROPHILS % 69.5 % (36.0-66.0); PLATELET COUNT, AUTOMATED 534 10^3/uL (150-450); RED BLOOD COUNT 4.52 10^6/uL (4.00-5.40); RED CELL DISTRIBUTION WIDTH 16.7 % (11.5-14.5)
[2018-01-21 11:19] LABS: ALBUMIN 3.1 GM/DL (3.2-5.2); ALBUMIN/GLOBULIN RATIO 0.61 (1.00-1.93); ALKALINE PHOSPHATASE 116 U/L (45-117); ALT/SGPT 15 U/L (12-78); ANION GAP 9 MEQ/L (8-16); AST/SGOT 14 U/L (7-37); BILIRUBIN,TOTAL 0.5 MG/DL (0.2-1.0); BLOOD UREA NITROGEN 18 MG/DL (7-18); CALCIUM LEVEL 8.6 MG/DL (8.8-10.2); CARBON DIOXIDE LEVEL 28 MEQ/L (21-32); CHLORIDE LEVEL 102 MEQ/L (98-107); CHOLESTEROL LEVEL 170 MG/DL (<200); CHOLESTEROL RISK RATIO 4.047 (<5); GLOMERULAR FILTRATION RATE 53.9 (>45); GLUCOSE, FASTING 109 MG/DL (70-100); HDL CHOLESTEROL 42 MG/DL (>40); LDL CHOLESTEROL 87 MG/DL (<100); NON-HDL-C 128 MG/DL; POTASSIUM SERUM 4.6 MEQ/L (3.5-5.1); SODIUM LEVEL 139 MEQ/L (136-145); TOTAL PROTEIN 8.2 GM/DL (6.4-8.2); TRIGLYCERIDES LEVEL 207 MG/DL (<150)
[2018-01-21 11:24] LABS: ESTIMATED AVERAGE GLUCOSE 146 MG/DL (60-110); HEMOGLOBIN A1c 6.7 %
== END ==
LOC: M LAB 09:46
DX: J44.9 Chronic obstructive pulmonary disease, unspecified (principal); I10 Essential (primary) hypertension; E11.9 Type 2 diabetes mellitus without complications; F41.9 Anxiety disorder, unspecified
CPT/HCPCS: 84443

== ENCOUNTER → 2018-01-30 | Outpatient (CLI) | payer MEDICARE | LOC: M SMT 08:13 | DX: I51.7 Cardiomegaly (principal); J81.0 Acute pulmonary edema; R06.00 Dyspnea, unspecified | CPT/HCPCS: 71046 ==

== ENCOUNTER 2018-02-20 09:04 | Day surgery (SDC) | payer MEDICARE ==
[~2018-02-20 09:04] MED LIST changes: -ISOVUE-370 76% 100ML VIAL (Q9967) As Ordered; +MIDAZOLAM INJ 2 MG/2 ML VIAL (J2250) As Ordered
[2018-02-20] MEDS: TROPICAMIDE 1% OPHTH SOLN 2ML OD (10:38)
[2018-02-20] MEDS: OFLOXACIN 0.3 % (OCUFLOX) OPTH SOL 5ML OD (10:38)
[2018-02-20] MEDS: PHENYLEPHRINE 2.5% OPHTH SOL 2ML OD (10:38)
[2018-02-20] MEDS: PROPARACAINE 0.5% OPHTH SOL 15ML OD (10:38)
[2018-02-20 10:55] LABS: BEDSIDE GLUCOSE 125 MG/DL (80-115)
[2018-02-20] MEDS ORDERED: fentaNYL 100 MCG/2 ML INJECTION (J3010) As Ordered (11:32)
[2018-02-20] MEDS ORDERED: MIDAZOLAM INJ 2 MG/2 ML VIAL (J2250) As Ordered (11:38)
[2018-02-20] MEDS: POVIDONE-IODINE 5% OPHTH PREP SOL 30ML As Ordered (11:39)
[2018-02-20] MEDS: DUOVISC (0.50ML VISCOAT/0.55ML PROVISC) OPHTH KIT As Ordered (11:39)
[2018-02-20] MEDS: BALANCED SALT IRRIGATION SOLUTION 500ML BAG (FOR OR EYE MACHINE) As Ordered (11:39)
[2018-02-20] MEDS: LIDOCAINE 0.75%/EPINEPHRINE 0.025% IN BSS 1ML SYR INTRACAMERAL (OR ONLY) As Ordered (11:40)
[2018-02-20] MEDS: CEFUROXIME 1MG/0.1ML INTRACAMERAL INJ As Ordered (11:40)
== END 2018-02-20 12:45 | disposition home or self-care (01) ==
LOC: M SDC 09:04
DX: H25.11 Age-related nuclear cataract, right eye (principal); I10 Essential (primary) hypertension; E78.5 Hyperlipidemia, unspecified; E11.9 Type 2 diabetes mellitus without complications; K58.8 Other irritable bowel syndrome; K21.9 Gastro-esophageal reflux disease without esophagitis; K44.9 Diaphragmatic hernia without obstruction or gangrene; Z87.891 Personal history of nicotine dependence; G47.30 Sleep apnea, unspecified; Z88.2 Allergy status to sulfonamides; Z79.82 Long term (current) use of aspirin; Z79.899 Other long term (current) drug therapy
CPT/HCPCS: 66984

== ENCOUNTER → 2018-03-03 | Outpatient (CLI) | payer MEDICARE | LOC: M RAD 11:11 | DX: R91.8 Other nonspecific abnormal finding of lung field (principal) | CPT/HCPCS: 71250 ==

== ENCOUNTER 2018-03-13 08:06 | Day surgery (SDC) | payer MEDICARE ==
[~2018-03-13 08:06] MED LIST changes: +fentaNYL 100 MCG/2 ML INJECTION (J3010) As Ordered
[2018-03-13] MEDS: PROPARACAINE 0.5% OPHTH SOL 15ML OS (09:52)
[2018-03-13] MEDS: OFLOXACIN 0.3 % (OCUFLOX) OPTH SOL 5ML OS (09:52)
[2018-03-13] MEDS: TROPICAMIDE 1% OPHTH SOLN 2ML OS (09:52)
[2018-03-13] MEDS: PHENYLEPHRINE 2.5% OPHTH SOL 2ML OS (09:52)
[2018-03-13 10:07] LABS: BEDSIDE GLUCOSE 114 MG/DL (80-115)
[2018-03-13] MEDS: POVIDONE-IODINE 5% OPHTH PREP SOL 30ML As Ordered (10:46)
[2018-03-13] MEDS: LIDOCAINE 0.75%/EPINEPHRINE 0.025% IN BSS 1ML SYR INTRACAMERAL (OR ONLY) As Ordered (10:49)
[2018-03-13] MEDS: BALANCED SALT IRRIGATION SOLUTION 500ML BAG (FOR OR EYE MACHINE) As Ordered (10:51)
[2018-03-13] MEDS: DUOVISC (0.50ML VISCOAT/0.55ML PROVISC) OPHTH KIT As Ordered (10:56)
[2018-03-13] MEDS: CEFUROXIME 1MG/0.1ML INTRACAMERAL INJ As Ordered ×2 (10:56)
== END 2018-03-13 11:35 | disposition home or self-care (01) ==
LOC: M SDC 11:35
DX: H25.12 Age-related nuclear cataract, left eye (principal); E11.9 Type 2 diabetes mellitus without complications; G47.30 Sleep apnea, unspecified; I10 Essential (primary) hypertension; E78.5 Hyperlipidemia, unspecified; K58.8 Other irritable bowel syndrome; K21.9 Gastro-esophageal reflux disease without esophagitis; Z88.2 Allergy status to sulfonamides; Z79.82 Long term (current) use of aspirin; Z79.899 Other long term (current) drug therapy
CPT/HCPCS: 66984

== ENCOUNTER → 2018-07-08 | Outpatient (CLI) | payer MEDICARE ==
[~2018-07-08] MED LIST changes: +ALBU0.63 INH; +ALDA25TA2 PO; +AMITRIPTYLINE HCL PO; +AMLO25TA PO; +ASPI81TA85 PO; +AUGM875T28 PO; +BREO1INH INH; +CELE10TA PO; +CELE40TA PO; +CLAR10CA3 PO; +CO-EPOW XX; +COQ-100C2 PO; +DULE100A IN; +DULE200A INH; +FERR1TAB8 PO; +IPRA0.00 IN; +IRON50TA PO; +K-TA10TA2 PO; +LASI20TA3 PO; +LEXA1TAB2 PO; +MAGN400C PO; +MAGN64TASA PO; -MIDAZOLAM INJ 2 MG/2 ML VIAL (J2250) As Ordered; +MUCI600T31 PO; +NIAC50TA PO; +NORCOTAB PO; +OMEP40CA2 PO; +PAME50CA PO; +PRAV20TA2 PO; +PRAV40TA2 PO; +PRED20TA PO; +PROAAER10 INH; +SITA50TAB PO; +TIOT18INH INH; +VENTAER IN; +VITA1TAB22 PO; +VITA500T3 PO; +ZIAC10TA PO; +ZONI25CA2 PO; -fentaNYL 100 MCG/2 ML INJECTION (J3010) As Ordered
--- NOTE | 2018-07-08 15:04 | REP ---
Clinical: Follow up abnormal findings. Technique: Axial noncontrast images from the thoracic inlet to the upper abdomen with coronal and sagittal re-formations. Comparison: 03/03/2018, 08/30/2017. Findings: Chronic COPD/emphysematous changes with scattered bullae as well as postsurgical changes involving the right upper lung zone remains stable. A small irregular opacity in the lingula on prior examination has resolved and likely represented focal atelectasis. No significant nodule, mass, or consolidation is appreciated on current examination. No pleural effusion. No pneumothorax. Tracheobronchial tree is patent. Subcentimeter mediastinal lymph nodes remain stable. The mediastinum demonstrates atherosclerotic changes to the thoracic aorta and coronary arteries a long with mild cardiomegaly. No aortic aneurysm or pericardial effusion identified. Musculoskeletal structures are intact. Impression: 1. Stable chronic and post surgical changes. 2. Previously noted opacity in the lingula has resolved and likely represented transient atelectasis. 3. No new acute process appreciated. Electronically Signed by Jose Pardo MD 07/08/2018 02:55 P
== END ==
LOC: M RAD 11:55
PROVIDERS: ATTEND Internal Medicine Pulmonary Disease
DX: J43.9 Emphysema, unspecified (principal); I70.0 Atherosclerosis of aorta; I25.10 Atherosclerotic heart disease of native coronary artery without angina pectoris; I51.7 Cardiomegaly

== ENCOUNTER → 2018-08-13 | Outpatient (CLI) | payer MEDICARE ==
[~2018-08-13] MED LIST changes: +CYAN100T5 PO; +HYDR-3715 PO; -NORCOTAB PO; -VITA1TAB22 PO
[2018-08-13 11:24] LABS: BASO # 0.1 10^3/uL (0.0-0.2); BASO % 0.7 % (0.0-1.0); EOS # 0.1 10^3/uL (0.0-0.50); EOS % 1.1 % (0.0-3.0); HEMATOCRIT 46.4 % (36.0-47.0); HEMOGLOBIN 15.1 g/dl (12.0-15.5); LYMPH # 2.8 10^3/uL (1.5-4.5); LYMPH % 24.3 % (24.0-44.0); MEAN CORPUSCULAR HEMOGLOBIN 29.4 pg (27.0-33.0); MEAN CORPUSCULAR HGB CONC 32.5 g/dl (32.0-36.5); MEAN CORPUSCULAR VOLUME 90.4 fl (80.0-96.0); MONO # 0.9 10^3/uL (0.0-0.8); MONO % 8.1 % (0.0-5.0); NEUTROPHILS # 7.4 10^3/uL (1.8-7.7); NEUTROPHILS % 65.3 % (36.0-66.0); PLATELET COUNT, AUTOMATED 451 10^3/uL (150-450); RED BLOOD COUNT 5.13 10^6/uL (4.00-5.40); WHITE BLOOD COUNT 11.3 10^3/uL (4.0-10.0)
[2018-08-13 11:52] LABS: ALBUMIN 3.2 GM/DL (3.2-5.2); BILIRUBIN,TOTAL 0.4 MG/DL (0.2-1.0); CALCIUM LEVEL 8.9 MG/DL (8.8-10.2); CREATININE FOR GFR 1.41 MG/DL (0.55-1.30); GLOMERULAR FILTRATION RATE 40.5 (>45); TOTAL PROTEIN 8.2 GM/DL (6.4-8.2)
== END ==
LOC: M LAB 10:42
PROVIDERS: ATTEND Internal Medicine
DX: R60.9 Edema, unspecified (principal)

== ENCOUNTER 2018-09-18 12:11 | Emergency (ER) | payer MEDICARE ==
[~2018-09-18] VITALS: Ht 162.6 cm; Wt 88.2 kg
[2018-09-18] MEDS ORDERED: LISI-542 (12:21)
[2018-09-18] MEDS ORDERED: MUPI2OI (12:22)
[2018-09-18 13:02] LABS: BASO # 0.1 10^3/uL (0.0-0.2); BASO % 0.6 % (0.0-1.0); EOS # 0.2 10^3/uL (0.0-0.50); EOS % 1.9 % (0.0-3.0); HEMATOCRIT 41.5 % (36.0-47.0); HEMOGLOBIN 13.6 g/dl (12.0-15.5); LYMPH # 2.6 10^3/uL (1.5-4.5); MEAN CORPUSCULAR HEMOGLOBIN 29.7 pg (27.0-33.0); MEAN CORPUSCULAR HGB CONC 32.8 g/dl (32.0-36.5); MEAN CORPUSCULAR VOLUME 90.6 fl (80.0-96.0); MONO # 0.9 10^3/uL (0.0-0.8); PLATELET COUNT, AUTOMATED 463 10^3/uL (150-450); RED BLOOD COUNT 4.58 10^6/uL (4.00-5.40); WHITE BLOOD COUNT 10.7 10^3/uL (4.0-10.0)
[2018-09-18 13:36] LABS: ALT/SGPT 14 U/L (12-78); BILIRUBIN,DIRECT < 0.1 MG/DL (0.0-0.2); BILIRUBIN,TOTAL 0.3 MG/DL (0.2-1.0); BLOOD UREA NITROGEN 18 MG/DL (7-18); CALCIUM LEVEL 9.1 MG/DL (8.8-10.2); CARBON DIOXIDE LEVEL 24 MEQ/L (21-32); CHLORIDE LEVEL 106 MEQ/L (98-107); CREATININE FOR GFR 1.31 MG/DL (0.55-1.30); GLOMERULAR FILTRATION RATE 44.1 (>45); GLUCOSE, FASTING 152 MG/DL (70-100); LIPASE 172 U/L (73-393); POTASSIUM SERUM 5.1 MEQ/L (3.5-5.1); SODIUM LEVEL 138 MEQ/L (136-145); TOTAL PROTEIN 8.1 GM/DL (6.4-8.2)
--- NOTE | 2018-09-18 14:42 | REP ---
ABDOMEN FLAT UPRIGHT PA CHEST, THREE VIEWS: HISTORY: Right upper quadrant pain. COMPARISON: 01/30/2018 A small amount of air is present in the intestine. There is minimal dilatation of the colon. Several air fluid levels are present. There is no pneumoperitoneum. A mild amount of stool is present in the colon. Surgical clips are present in the abdomen. The cardiac silhouette is enlarged. IMPRESSION: 1. Nonspecific bowel gas pattern. 2. Cardiomegaly. Electronically Signed by Margarito Trejo MD 09/18/2018 02:59 P
[2018-09-18] MEDS ORDERED: SIME180C PO (15:08)
[2018-09-18] MEDS ORDERED: PROM12.56 PO (15:08)
[2018-09-18 15:14] VITALS: BP 166/71
[2018-09-26] MEDS ORDERED: COQ-100C5 PO (14:23)
== END 2018-09-18 15:18 | disposition home or self-care (01) ==
LOC: M ED 12:11
DX: R10.11 Right upper quadrant pain (principal); R14.0 Abdominal distension (gaseous); I51.7 Cardiomegaly; E11.9 Type 2 diabetes mellitus without complications; F41.9 Anxiety disorder, unspecified; F32.9 Major depressive disorder, single episode, unspecified; G89.29 Other chronic pain; M54.9 Dorsalgia, unspecified; Z87.891 Personal history of nicotine dependence; Z79.82 Long term (current) use of aspirin; Z79.899 Other long term (current) drug therapy; Z88.2 Allergy status to sulfonamides; Z88.1 Allergy status to other antibiotic agents

== ENCOUNTER → 2018-10-29 | Outpatient (CLI) | payer MEDICARE ==
[~2018-10-29] MED LIST changes: +COQ-100C5 PO; +CYAN500T8 PO; +LISI-542; +MUPI2OI; +PROM12.56 PO; +SIME180C PO; -VITA500T3 PO
--- NOTE | 2018-10-29 09:27 | REPMRS ---
Patient History The patient states she had a clinical breast exam in 10/2017. Patient is postmenopausal. Family history of ovarian cancer at age 50 in sister. Digital Woman Screen Mammo: October 29, 2018 - Exam #: [id number] Bilateral CC and MLO view(s) were taken. Technologist: Amy Bajwa, Technologist Prior study comparison: December 24, 2016, bilateral digital woman screen mammo, performed at [facility]. January 17, 2015, bilateral digital woman screen mammo, performed at [facility]. May 12, 2007, bilateral screening mammogram, performed at [facility]. FINDINGS: There are scattered fibroglandular densities. There is a stable 1 cm nodular opacity projects in the upper outer quadrant of the right breast which has developed some dystrophic calcifications. There has been no other change in the appearance of the mammogram from the prior studies. There is a mild amount of scattered fibroglandular density which is fairly symmetric. There is no other interval development of dominant mass, architectural distortion, or grouped microcalcification suggestive of malignancy. 3-D tomosynthesis shows no additional findings. Assessment: BI-RADS/ACR category 2 mammogram. Benign Findings. Recommendation Routine screening mammogram of both breasts in 1 year (for women over age 40). This patient's Lifetime Breast Cancer Risk is estimated at 6.0 %. This mammogram was interpreted with the aid of an FDA-approved computer-aided dectection system. Electronically Signed By: Sanjay Jones MD 10/29/18 0926
== END ==
LOC: M WHC 06:43
PROVIDERS: ATTEND Internal Medicine
DX: Z12.31 Encounter for screening mammogram for malignant neoplasm of breast (principal); Z78.0 Asymptomatic menopausal state

== ENCOUNTER → 2019-01-16 | Outpatient (CLI) | payer MEDICARE ==
--- NOTE | 2019-01-16 19:06 | REP ---
The uterus measures 6.5 x 2.3 x 3.9 cm. The parenchymal echo pattern is within normal limits to mildly heterogenous, but there are no measurable masses. The endometrial echo complex has a heterogenous appearance with a maximal thickness of approximately 6 mm. Small nonspecific area of increased echo is seen in the lower uterine segment measuring 1.3 cm. There is no abnormal endometrial cavitary or endocervical canal fluid. The right ovary measures 1.8 x 1 x 1.2 cm. The left ovary measures 1.6 x 1.1 x 1 cm. Secondary to the patient's complaints of pain, bilateral ovarian Doppler was obtained. The right ovarian RI is 0.5 and the left is 0.55. The urinary bladder measures 4 x 4 x 2 cm. IMPRESSION: Small nonspecific area of increased echo seen in the lower uterine segment of uncertain etiology. Consider followup if clinically relevant. There is no significant myomatous change. There is no significant endometrial abnormality. The maximal thickness is upper limits of normal. There is no ovarian abnormality. Findings as described above. Electronically Signed by Aron Hull DO 01/19/2019 04:13 P
== END ==
LOC: M RAD 14:59
PROVIDERS: ATTEND Nurse Practitioner
DX: R10.9 Unspecified abdominal pain (principal)

== ENCOUNTER → 2019-02-11 | Outpatient (CLI) | payer MEDICARE ==
[~2019-02-11] MED LIST changes: -OMEP40CA2 PO; +OMEP40CA97 PO
--- NOTE | 2019-02-11 11:55 | REP ---
Two-view chest: 02/11/2019. Indication: COPD. Dyspnea. Comparison: 01/30/2018. Findings: The hyperinflated lungs are clear. No significant pleural effusion or pneumothorax are present. Interstitial chronic fibrotic changes are present. Mildly enlarged cardiac silhouette is noted. Mild idiopathic scoliosis of the thoracolumbar spine is present. Impression: No acute cardiopulmonary process. Electronically Signed by Michael Singletary DO 02/11/2019 11:47 A
== END ==
LOC: M WUC 11:21
PROVIDERS: ATTEND Internal Medicine
DX: J44.9 Chronic obstructive pulmonary disease, unspecified (principal)

== ENCOUNTER 2019-03-01 07:01 | Inpatient (IN) | payer MEDICARE, OTHER ==
[~2019-03-01] VITALS: Ht 162.6 cm; Wt 88.6 kg
[~2019-03-01 07:01] MED LIST changes: -LISI-542; +LISI-542 PO
[2019-03-01] MEDS ORDERED: GABA-843 PO (07:23)
[2019-03-01 07:49] LABS: BASO # 0.1 10^3/uL (0.0-0.2); BASO % 0.5 % (0.0-1.0); EOS # 0.1 10^3/uL (0.0-0.5); EOS % 0.9 % (0.0-3.0); HEMATOCRIT 38.6 % (36.0-47.0); HEMOGLOBIN 12.3 g/dl (12.0-15.5); LYMPH % 13.7 % (24.0-44.0); MEAN CORPUSCULAR HEMOGLOBIN 30.1 pg (27.0-33.0); MEAN CORPUSCULAR HGB CONC 31.9 g/dl (32.0-36.5); MEAN CORPUSCULAR VOLUME 94.6 fl (80.0-96.0); MONO % 6.7 % (0.0-5.0); NEUTROPHILS # 11.5 10^3/uL (1.5-8.5); NEUTROPHILS % 77.4 % (36.0-66.0); PLATELET COUNT, AUTOMATED 328 10^3/uL (150-450); RED BLOOD COUNT 4.08 10^6/uL (4.00-5.40); WHITE BLOOD COUNT 14.9 10^3/uL (4.0-10.0)
[2019-03-01 08:14] LABS: CALCIUM LEVEL 8.8 MG/DL (8.8-10.2); CK-MB VALUE MASS 2.2 NG/ML (<3.6); CREATININE FOR GFR 1.26 MG/DL (0.55-1.30); MB/CK RELATIVE INDEX 4.89 (< OR =4); POTASSIUM SERUM 4.6 MEQ/L (3.5-5.1); TROPONIN I 0.05 NG/ML (< 0.10)
--- NOTE | 2019-03-01 08:22 | REP ---
Portable chest x-ray: Single view. History: Chest pain. Comparison study: February 11, 2019. Findings: There are surgical sutures in the right lung apex along with some linear fibrosis. Mild linear fibrosis is seen in the right base. Moderate cardiac enlargement is observed. Pulmonary vasculature is cephalized. No pleural effusion or robert pulmonary edema seen. No focal infiltrate is noted. Impression: Cardiomegaly. Post thoracotomy changes on the right. Vascular congestion. Electronically Signed by Cristofer Jones MD 03/01/2019 08:13 A
[2019-03-01] MEDS ORDERED: FUROSEMIDE 40 MG/4 ML VIAL (J1940) IV ONE (08:30)
[2019-03-01] MEDS ORDERED: ISOVUE-370 76% 100ML VIAL (Q9967) As Ordered ONE (08:37)
[2019-03-01] MEDS ORDERED: METAL LOCK LOOP XX ONE (09:04)
--- NOTE | 2019-03-01 09:11 | REP ---
CT pulmonary angiogram: With IV contrast. History: Rule out pulmonary embolus. Comparison studies: Comparison is made with today's chest x-ray. Comparison chest CT study without contrast is from July 08, 2018. Contrast dose: 75 ML of Isovue [address] technique: Helical scanning is acquired and overlapping 1.5 mm and contiguous 3 mm axial images are reformatted. In addition, maximum intensity projection and multiplanar re-formation images are generated in sagittal and coronal imaging projections. CT pulmonary angiographic findings: There is good opacification of the pulmonary arterial tree. There is no CT evidence of pulmonary embolism. No vessel cutoff or filling defect is seen. The thoracic aorta shows atherosclerosis calcifications but no evidence of aneurysm or dissection. There are post surgical suture lines in the right apex. Biapical bullae are seen. Linear fibrosis is noted in the right middle lobe. There is no evidence of pleural or pericardial effusion. Cardiomegaly is observed. No adrenal lesion is seen. There are clips in the gallbladder fossa. The spleen is surgically absent. Visualized upper abdominal structures are otherwise unremarkable. No pulmonary infiltrate or mass lesion is seen. Impression: No CT evidence of pulmonary embolus. Biapical bullae. Post thoracotomy suture lines in the right apex. Right middle lobe linear fibrosis. Cardiomegaly. Post splenectomy. Electronically Signed by Cristofer Jones MD 03/01/2019 09:02 A
[2019-03-01] MEDS ORDERED: HYDR200T3 PO (10:13)
[2019-03-01] MEDS ORDERED: JANU100T PO (10:13)
[2019-03-01] MEDS ORDERED: TRAM50TA2 PO (10:13)
[2019-03-01] MEDS ORDERED: IPRA0.00 NEB (10:13)
[2019-03-01] MEDS ORDERED: ZONI50CA PO (10:13)
[2019-03-01] MEDS ORDERED: MOM 30ML SUSPENSION UDC PO PRN (11:30)
[2019-03-01] MEDS ORDERED: ACETAMINOPHEN TAB 650MG DOSE (2X325MG) PO PRN (11:30)
[2019-03-01] MEDS ORDERED: MAALOX 30 ML SUSP *UDC PO PRN (11:30)
[2019-03-01] MEDS ORDERED: IPRATROPIUM 0.5MG/ALBUTEROL 2.5MG INH SOL UD 3ML (DUONEB)(J7620) NEB PRN (11:45)
--- NOTE | 2019-03-01 11:57 | HPEPDOC ---
General Date of Admission 03/01/19 Date of Service: Mar 01, 2019 Primary Care Physician: A Chief Complaint The patient is a 59-year-old female admitted with a reason for visit of chest pain. Source: Patient Exam Limitations: No limitations Timing/Duration: Other Severity: Moderate Associated Symptoms: Chest Pain, Shortness of breath History of Present Illness This is 59 years old, obese, white female past medical history of hypertension, hyperlipidemia, type 2 diabetes mellitus, heart murmur, COPD, obstructive sleep apnea, GERD, post concussion syndrome. Dysthymic disorder, psoriatic arthritis, was in usual state of health until since she developed intermittent chest pain, sharp, midsternal, nonradiating, not relieved with anything makes or position and not exacerbated by ambulation or food associated with shortness of breath. Shortness of breath progressively got worse and hence she decided come to ED today when she is been diagnosed with CHF and admitted for further workup. Home Medications Scheduled Aspirin (Aspir 81) 81 Mg Tab, 81 MG PO DAILY, (Reported) Cyanocobalamin (Vitamin B-12) (Vitamin B-12) 500 Mcg Tab, 1,000 MCG PO DAILY, (Reported) Escitalopram Oxalate (Lexapro) 20 Mg Tab, 20 MG PO DAILY, (Reported) Ferrous Sulfate (Ferrous Sulfate) 325 Mg Tab, 325 MG PO DAILY, (Reported) Furosemide (Lasix) 20 Mg Tab, 20 MG PO BID, (Reported) Gabapentin (Gabapentin) 300 Mg Capsule, 300 MG PO QID, (Reported) Hydroxychloroquine Sulfate (Hydroxychloroquine Sulfate) 200 Mg Tablet, 200 MG PO BID, (Reported) Lisinopril (Lisinopril) 5 Mg Tablet, 5 MG PO DAILY, (Reported) Loratadine (Claritin) 10 Mg Cap, 10 MG PO DAILY, (Reported) Magnesium Oxide (Magnesium) 400 Mg Cap, 400 MG PO BID, (Reported) Mometasone/Formoterol (Dulera 200 Mcg/5 Mcg Inhaler) 1 Aer Aer, 2 PUFFS INH BID, (Reported) Nortriptyline HCl (Pamelor) 50 Mg Cap, 50 MG PO DAILY, (Reported) Omeprazole (Omeprazole) 40 Mg Cap, 40 MG PO DAILY, (Reported) Potassium Chloride (K-Tab ER) 10 Meq Tab, 10 MEQ PO BID, (Reported) Pravastatin Sodium (Pravastatin Sodium) 20 Mg Tab, 20 MG PO DAILY, (Reported) Sitagliptin Phosphate (Januvia) 100 Mg Tablet, 50 MG PO DAILY, (Reported) Spironolactone (Aldactone) 25 Mg Tab, 25 MG PO BID, (Reported) Tiotropium [place] Monohydrate (Spiriva) 5 Inhalation/Inhaler Powd, 2 PUFF INH DAILY, (Reported) Ubidecarenone (Coq-10) 100 Mg Capsule, 100 MG PO DAILY, (Reported) Zonisamide (Zonisamide) 50 Mg Capsule, 50 MG PO DAILY, (Reported) Scheduled PRN Albuterol Sulfate (Ventolin Hfa) 108 Mcg/Act Aer, 108 MCG IN PRN PRN for SHORTNESS OF BREATH, (Reported) Ipratropium/Albuterol Sulfate (Iprat-Albut 0.5-3(2.5) mg/3 ml) 3 Ml Ampul.neb, 1 ANTHONY NEB QID PRN for SOB/WHEEZING, (Reported) Tramadol HCl (Tramadol HCl) 50 Mg Tablet, 50 MG PO for PAIN, (Reported) Allergies Coded Allergies: Sulfa (Sulfonamide Antibiotics) (Verified Allergy, Intermediate, swelling, 07/17/18) amphotericin B (Verified Allergy, Intermediate, rigors, 09/18/18) clarithromycin (Verified Allergy, Intermediate, rash, 07/17/18) sulfamethoxazole (Verified Allergy, Intermediate, swelling, rash, 07/17/18) trimethoprim (Verified Allergy, Intermediate, swelling, rash, 07/17/18) Past Medical History Medical History Essential hypertension, mixed hyperlipidemia, heart murmur, type 2 diabetes mellitus, COPD, obstructive sleep apnea on CPAP, GERD, history of closed head injury postconcussion syndrome with headaches dysthymic disorder, environmental allergies, psoriatic arthritis, having phobia, carotid artery disease, peripheral vascular disease. Asplenia Surgical History Left carotid endarterectomy me centric stents placed in and then removed, vascular bypass surgery, thymic cyst removal Family History Significant Family History: No pertinent family hx Social History * Smoker: former Smoker, quit less than 1 year Alcohol: Denies Drugs: denies Recent Travel/Sick Contacts: Reports: Recent travel A-FIB/[facility]ASC A-FIB History Current/History of A-Fib/PAF?: No Review of Systems Constitutional: Denies: Chills, Fever, Malaise, Night Sweats, Weakness, Fatigue, Weight Loss, Lethargy, Other Eyes: Denies: Pain, Vision change, Conjunctivae inflammation, Eyelid inflammation, Redness, Other ENT: Denies: Head Aches, Ear Pain, Dysphagia, Sinus Congestion, Post Nasal Drip, Sore Throat, Epistaxis, Other Symptoms Pulmonary: Reports: Dyspnea Cardiovascular: Reports: Chest Pain Gastrointestinal: Denies: Nausea, Vomiting, Abdominal Pain, Diarrhea, Constipation, Melena, Hematochezia, Other Symptoms Genitourinary: Denies: Dysuria, Frequency, Incontinence, Hematuria, Retention, Other Symptoms Hematologic: Denies: Bruising, Bleeding Excessively, Petecchia, Purpura, Enlarged Lymph Nodes, Other Hematologic Endocrine: Denies: Polydipsia, Polyphagia, Polyuria, Heat Intolerance, Cold Intolerance, Other Endocrine Sx Musculoskeletal: Denies: Neck Pain, Back Pain, Shoulder Pain, Arm Pain, Hand Pain, Leg Pain, Foot Pain, Joint Pain, Muscle Pain, Spasms, Other Symptoms Neurological: Denies: Weakness, Numbness, Incoordination, Change in speech, Confusion, Seizures, Other Symptoms Psych: Denies: Mood Normal, Anxiety, Depression, Memory Issues, Thoughts of Self Harm, Anger, Thoughts of Harming Other, Other Psych Physical Examination General Exam: Positive: Alert, Cooperative Eye Exam: Positive: PERRLA, Conjunctiva & lids normal ENT Exam: Positive: Atraumatic Neck Exam: Positive: Supple Chest Exam: Positive: Other (. Decreased breath sounds bilaterally but no audible rales or crackles) Heart Exam: Positive: Rate Normal, Normal S1, Normal S2 Abdomen Exam: Positive: Normal bowel sounds, Soft Extremity Exam: Positive: Normal pulses Skin Exam: Positive: Nl turgor and temperature Neuro Exam: Positive: Strength at 5/5 X4 ext, Sensation Intact Psych Exam: Positive: Mental status NL, Mood NL, Oriented x 3 Vital Signs Vital Signs Date Time Temp Pulse Resp B/P (MAP) Pulse Ox O2 Delivery O2 Flow Rate FiO2 03/01/19 11:00 71 142/51 (81) 93 Room Air 03/01/19 07:02 97.6 20 Laboratory Data Labs 24H Laboratory Tests 2 03/01/19 07:26: Immature Granulocyte % (Auto) 0.8, Neutrophils (%) (Auto) 77.4H, Lymphocytes (%) (Auto) 13.7L, Monocytes (%) (Auto) 6.7H, Eosinophils (%) (Auto) 0.9, Basophils (%) (Auto) 0.5, Neutrophils # (Auto) 11.5H, Lymphocytes # (Auto) 2.0, Monocytes # (Auto) 1.0H, Eosinophils # (Auto) 0.1, Basophils # (Auto) 0.1, Nucleated Red Blood Cells % (auto) 0.0, Anion Gap 7L, Glomerular Filtration Rate 46.0, Calcium Level 8.8, Total Creatine Kinase 45, Creatine Kinase MB 2.2, Creatine Kinase MB Relative Index 4.89H, Troponin I 0.05, DY-Fva-S-Type Natriuretic Peptide 3416H 03/01/19 07:34: Lactic Acid Level 2.1*H CBC/BMP Laboratory Tests 03/01/19 07:26 Microbiology Microbiology 03/01/19 Blood Culture, Received Pending 03/01/19 Blood Culture, Received Pending Problems (1) CHF (congestive heart failure) Status: Acute Problem Text: Venkat years old white female with past medical history of hypertension, hyperlipidemia, diabetes mellitus, aortic regurgitation, peripheral vascular disease admitted with intermittent chest pain and shortness of breath. This chest x-ray consistent with vascular congestion in ED with high BNP 3416 and EKG shows normal sinus rhythm with LVH pattern, but no acute ST-T changes, troponin first one is negative: Most likely congestive heart failure. Patient follows up with as outpatient Admit patient to PCU with telemetry Serial troponins Patient received Lasix 40 mg IV in ED and I will start her on Lasix 60 mg IV every 12 hours Along with Nitropaste 0.5 inch to chest wall every 6 hours to decrease preload oxygen via 2 L NC Telemetry monitoring A strict I and O's CBC, CMP, magnesium and BNP in a.m. Echocardiogram in a.m. DVT prophylaxis with heparin 2 g sodium diet Continue home meds including NO inhibitor and statins (2) COPD (chronic obstructive pulmonary disease) Status: Chronic Problem Text: DuoNeb every 6 hours when necessary Continue home meds (3) Diabetes mellitus Status: Chronic Problem Text: Fingerstick blood sugar every before meals and at bedtime with coverage Continue home meds (4) HTN (hypertension) Status: Chronic Problem Text: Under control Continue home meds (5) Aortic valve regurgitation Status: Chronic Problem Text: Will repeat echocardiogram to further acertain the degree of aortic regurgitation Management pending echocardiogram (6) Hyperlipidemia Status: Chronic Problem Text: Continue home meds Plan / VTE VTE Prophylaxis Ordered?: Yes JODIE WARD MD Mar 01, 2019 11:57
[2019-03-01] MEDS: HumaLOG INSULIN (NovoLOG) PER UNIT SC SCH ×3 (12:00→21:00)
[2019-03-01] MEDS ORDERED: GLUCOSE 4 GM CHEW TABLET PO PRN (12:00)
[2019-03-01] MEDS ORDERED: DEXTROSE 50% 50 ML SYRINGE IV PRN (12:00)
[2019-03-01] MEDS ORDERED: GLUCAGON FOR INJ 1 MG VIAL (J1610) SC PRN (12:00)
--- NOTE | 2019-03-01 12:16 | ECGEPIP ---
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
--- NOTE | 2019-03-01 12:17 | ECGEPIP ---
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
[2019-03-01 12:30] VITALS: BP 170/80
[2019-03-01] MEDS: HEPARIN SOD (PORCINE) 5000 UNITS/ML VIAL SC SCH ×2 (12:53→21:36)
[2019-03-01] MEDS: FUROSEMIDE 100 MG/10 ML VIAL (J1940) IV SCH (12:53)
[2019-03-01] MEDS: NITROGLYCERIN 2% OINT 1 GM *U/D* PKT TOP SCH ×2 (12:54→17:39)
[2019-03-01] MEDS: GABAPENTIN 300 MG CAP PO SCH ×4 (12:54→21:33)
[2019-03-01] MEDS: TIOTROPIUM INHALER/CAPSULE (SPIRIVA) INH SCH (14:53)
[2019-03-01 15:45] VITALS: BP 162/88
[2019-03-01] MEDS: traMADol 50 MG TAB PO PRN (17:40)
[2019-03-01 20:00] VITALS: BP 139/62
[2019-03-01] MEDS: SPIRONOLACTONE 25 MG TAB PO SCH (21:34)
[2019-03-01] MEDS: POTASSIUM CHLORIDE 10 MEQ SR TABLET PO SCH (21:34)
[2019-03-01] MEDS: HYDROXYCHLOROQUINE 200 MG TAB PO SCH (21:34)
[2019-03-01] MEDS: MAGNESIUM OXIDE 400 MG TAB (MAG-OX) PO SCH (21:34)
[2019-03-01] MEDS: DOCUSATE SODIUM 100 MG CAP PO SCH (21:34)
[2019-03-02] VITALS (7 sets, daily range): BP systolic 108–198; BP diastolic 59–82
[2019-03-02] MEDS: NITROGLYCERIN 2% OINT 1 GM *U/D* PKT TOP SCH ×4 (00:31→17:40)
[2019-03-02] MEDS: FUROSEMIDE 100 MG/10 ML VIAL (J1940) IV SCH ×2 (00:31→12:29)
[2019-03-02] MEDS: HEPARIN SOD (PORCINE) 5000 UNITS/ML VIAL SC SCH ×3 (03:30→21:39)
[2019-03-02] MEDS: traMADol 50 MG TAB PO PRN (05:36)
[2019-03-02] MEDS: HumaLOG INSULIN (NovoLOG) PER UNIT SC SCH ×4 (07:30→21:00)
[2019-03-02 07:38] LABS: HEMATOCRIT 40.5 % (36.0-47.0); HEMOGLOBIN 13.2 g/dl (12.0-15.5); MEAN CORPUSCULAR HEMOGLOBIN 29.6 pg (27.0-33.0); MEAN CORPUSCULAR HGB CONC 32.6 g/dl (32.0-36.5); MEAN CORPUSCULAR VOLUME 90.8 fl (80.0-96.0); PLATELET COUNT, AUTOMATED 371 10^3/uL (150-450); RED BLOOD COUNT 4.46 10^6/uL (4.00-5.40); WHITE BLOOD COUNT 11.9 10^3/uL (4.0-10.0)
[2019-03-02 08:05] LABS: ALBUMIN 3.2 GM/DL (3.2-5.2); CALCIUM LEVEL 9.2 MG/DL (8.8-10.2); CREATININE FOR GFR 1.68 MG/DL (0.55-1.30); TOTAL PROTEIN 7.7 GM/DL (6.4-8.2)
[2019-03-02] MEDS: ASPIRIN 81 MG ENTERIC TAB PO SCH (08:33)
[2019-03-02] MEDS: DOCUSATE SODIUM 100 MG CAP PO SCH ×3 (08:33→21:38)
[2019-03-02] MEDS: GABAPENTIN 300 MG CAP PO SCH ×4 (08:33→21:38)
[2019-03-02] MEDS: HYDROXYCHLOROQUINE 200 MG TAB PO SCH ×2 (08:33→23:16)
[2019-03-02] MEDS: OMEPRAZOLE 20 MG CAP PO SCH (08:33)
[2019-03-02] MEDS: FERROUS SULFATE 325MG TAB PO SCH (08:33)
[2019-03-02] MEDS: PRAVASTATIN 20 MG TAB PO SCH (08:34)
[2019-03-02] MEDS: MAGNESIUM OXIDE 400 MG TAB (MAG-OX) PO SCH ×2 (08:34→21:38)
[2019-03-02] MEDS: CYANOCOBALAMIN 500 MCG TAB PO SCH (08:34)
[2019-03-02] MEDS: ESCITALOPRAM OXALATE 10 MG TAB (LEXAPRO) PO SCH (08:34)
[2019-03-02] MEDS: LISINOPRIL 5 MG TAB PO SCH (08:34)
[2019-03-02] MEDS: LORATADINE 10 MG TAB PO SCH (08:34)
[2019-03-02] MEDS: POTASSIUM CHLORIDE 10 MEQ SR TABLET PO SCH ×2 (08:34→21:38)
[2019-03-02] MEDS: SITagliptin 50 MG TAB (JANUVIA) PO SCH (08:34)
[2019-03-02] MEDS: ZONISAMIDE 50 MG CAP (ZONEGRAN) PO SCH (08:35)
[2019-03-02] MEDS: SPIRONOLACTONE 25 MG TAB PO SCH ×2 (08:35→23:16)
[2019-03-02] MEDS: NORTRIPTYLINE 25 MG CAP PO SCH (08:35)
[2019-03-02 09:31] LABS: TROPONIN I 0.05 NG/ML (< 0.10)
[2019-03-02] MEDS: TIOTROPIUM INHALER/CAPSULE (SPIRIVA) INH SCH (15:21)
--- NOTE | 2019-03-02 18:22 | IPNPDOC ---
Date Seen The patient was seen on 03/02/19. Progress Note SUBJECTIVE: Patient was seen and examined this morning states that she is feeling much better since being admitted. She noticed that shes not diuresing as much this morning but her shortness of breath has improved since the Lasix was given. Denies any nausea, vomiting, diarrhea, abdominal pain, lightheadedness or dizziness. Does complain of a slight headache and her blood pressure was elevated this morning with a systolic of 198. She states does get better when she takes her home meds. She has no other complaints at this time OBJECTIVE PHYSICAL EXAMINATION: VITAL SIGNS: Please see below. GENERAL: Pleasant morbidly obese female laying on the bed speaking in complete sentences no acute distress no accessory muscle use HEENT: Moist mucous membranes no JVD CARDIOVASCULAR: S1 S2 regular rate possible 2/6 diastolic murmur at the right third intercostal space no additional heart sounds appreciated. RESPIRATORY: No audible wheezing rhonchi the Rales appreciated at the bases. Poor air movement. ABDOMINAL: Bowel sounds present abdomen soft and nontender EXTREMITIES: No clubbing cyanosis or edema NEUROLOGICAL: Spontaneously moves all 4 extremities cranial 2 through 12 grossly intact no gross focal deficits appreciated PSYCHOLOGICAL: Appropriate LABORATORY DATA, MICROBIOLOGY: Please see below. IMAGING STUDIES: ASSESSMENT AND PLAN: This is a 32-bziq-aqn-year-old female with acute congestive heart failure PROBLEMS: 1. Acute CHF -Clinically improved with Lasix. We'll increase to 40 mg TID IV to achieve euvolemia -Echocardiogram pending to assess ejection fraction - Continue with lisinopril and statins - Monitor electrolytes and replenish as needed 2. Lactic acidosis -Likely type B lactic acidosis secondary congestive heart failure well refer to plan above 3. Hypertension. - c/w lisinopril, spironolactone - Discontinue Nitro-Bid paste - c/w frusemide 40 mg TID IV and monitor blood pressure 4. Diabetes mellitus - c/w ISS - Shes been on Januvia for 1 year without any acute exacerbations but there is a documented side effect of heart failure with this drug class therefore will monitor volume status while on this. 5. Acute valvular regurgitation -echocardiogram pending 6. Hyperlipidemia - c/w Pravastatin 7. Migraines - c/w nortriptyline and zonisamide 8.GERD -c/w Omeprazole 9. Depression -c/w Lexaopro 10. Seasonal Allergies -c/w Clartin DVT prophylaxis: Heparin DISPOSITION: Possible discharge in 24-48 hours pending volume status VS, I&O, 24H, Fishbone Vital Signs/I&O Vital Signs Date Time Temp Pulse Resp B/P (MAP) Pulse Ox O2 Delivery O2 Flow Rate FiO2 03/02/19 16:00 97.3 73 18 129/59 (82) 96 Nasal Cannula 3.0 I&O- Last 24 Hours up to 6 AM 03/02/19 05:59 Intake Total 1890 ml Output Total 5400 ml Balance -3510 ml Laboratory Data 24H LABS Laboratory Tests 2 03/01/19 19:32: Troponin I 0.05 03/01/19 20:21: Bedside Glucose (Misc Panel) 157H 03/02/19 05:26: Bedside Glucose (Misc Panel) 127H 03/02/19 07:09: Troponin I 0.05, Nucleated Red Blood Cells % (auto) 0.0, Anion Gap 8, Glomerular Filtration Rate 33.0L, Calcium Level 9.2, Magnesium Level 2.0, Total Bilirubin 1.0, Aspartate Amino Transf (AST/SGOT) 14, Alanine Aminotransferase (ALT/SGPT) 21, Alkaline Phosphatase 89, Total Protein 7.7, Albumin 3.2, Albumin/Globulin Ratio 0.71L 03/02/19 11:23: Bedside Glucose (Misc Panel) 86 03/02/19 17:22: Bedside Glucose (Misc Panel) 120H CBC/BMP Laboratory Tests 03/02/19 07:09 Microbiology Microbiology 03/01/19 Blood Culture - Preliminary, Resulted No growth after 24 hours . All specim... 03/01/19 Blood Culture - Preliminary, Resulted No growth after 24 hours . All specim... GME ATTESTATION GME ATTESTATION My faculty preceptor for this patient encounter was physically present during the encounter and was fully available. All aspects of the patient interview, examination, medical decision making process, and medical care plan development were reviewed and approved by the faculty preceptor. The faculty preceptor is aware and concurs with the plan as stated in the body of this note and will attest to such by his/her cosignature. ATTENDING NOTE Patient was seen and examined by me this morning with the residents. Agree with the above assessment and plan JARVIS DAWSON DO Mar 02, 2019 18:22 SHILPA CIFUENTES MD Mar 03, 2019 13:47
[2019-03-02] MEDS: FUROSEMIDE 40 MG/4 ML VIAL (J1940) IV SCH (21:38)
[2019-03-02] MEDS ORDERED: SLF 3 ML SYR IV PRN (23:30)
[2019-03-03] VITALS (7 sets, daily range): BP systolic 96–133; BP diastolic 53–67
[2019-03-03] MEDS: HEPARIN SOD (PORCINE) 5000 UNITS/ML VIAL SC SCH ×3 (04:15→17:51)
[2019-03-03] MEDS: FUROSEMIDE 40 MG/4 ML VIAL (J1940) IV SCH (04:16)
[2019-03-03] MEDS: SLF 3 ML SYR IV SCH ×3 (05:20→20:28)
[2019-03-03 05:49] LABS: HEMATOCRIT 41.3 % (36.0-47.0); HEMOGLOBIN 13.4 g/dl (12.0-15.5); MEAN CORPUSCULAR HGB CONC 32.4 g/dl (32.0-36.5); MEAN CORPUSCULAR VOLUME 92.6 fl (80.0-96.0); PLATELET COUNT, AUTOMATED 383 10^3/uL (150-450); RED BLOOD COUNT 4.46 10^6/uL (4.00-5.40); WHITE BLOOD COUNT 12.5 10^3/uL (4.0-10.0)
[2019-03-03 06:21] LABS: CALCIUM LEVEL 8.6 MG/DL (8.8-10.2); CREATININE FOR GFR 2.11 MG/DL (0.55-1.30); GLOMERULAR FILTRATION RATE 25.3 (>45); POTASSIUM SERUM 4.7 MEQ/L (3.5-5.1)
[2019-03-03] MEDS: HumaLOG INSULIN (NovoLOG) PER UNIT SC SCH ×4 (07:30→20:34)
[2019-03-03] MEDS ORDERED: FLUBLOK(EGG FREE)(QUAD)INFLUENZA VACC 0.5ML SYRINGE (90682)18YRS&OLDER IM ONE (09:00)
[2019-03-03] MEDS: POTASSIUM CHLORIDE 10 MEQ SR TABLET PO SCH ×2 (09:00→20:25)
[2019-03-03] MEDS: TIOTROPIUM INHALER/CAPSULE (SPIRIVA) INH SCH (09:32)
[2019-03-03] MEDS: ASPIRIN 81 MG ENTERIC TAB PO SCH (10:38)
[2019-03-03] MEDS: PRAVASTATIN 20 MG TAB PO SCH (10:38)
[2019-03-03] MEDS: ESCITALOPRAM OXALATE 10 MG TAB (LEXAPRO) PO SCH (10:38)
[2019-03-03] MEDS: OMEPRAZOLE 20 MG CAP PO SCH (10:39)
[2019-03-03] MEDS: HYDROXYCHLOROQUINE 200 MG TAB PO SCH ×2 (10:39→20:26)
[2019-03-03] MEDS: CYANOCOBALAMIN 500 MCG TAB PO SCH (10:39)
[2019-03-03] MEDS: LISINOPRIL 5 MG TAB PO SCH (10:40)
[2019-03-03] MEDS: DOCUSATE SODIUM 100 MG CAP PO SCH ×2 (10:40→20:26)
[2019-03-03] MEDS: FERROUS SULFATE 325MG TAB PO SCH (10:40)
[2019-03-03] MEDS: SITagliptin 50 MG TAB (JANUVIA) PO SCH (10:41)
[2019-03-03] MEDS: GABAPENTIN 300 MG CAP PO SCH ×5 (10:41→20:26)
[2019-03-03] MEDS: SPIRONOLACTONE 25 MG TAB PO SCH ×2 (10:41→20:27)
[2019-03-03] MEDS: MAGNESIUM OXIDE 400 MG TAB (MAG-OX) PO SCH ×2 (10:41→20:25)
[2019-03-03] MEDS: LORATADINE 10 MG TAB PO SCH (10:43)
[2019-03-03] MEDS: ZONISAMIDE 50 MG CAP (ZONEGRAN) PO SCH (10:44)
[2019-03-03] MEDS: NORTRIPTYLINE 25 MG CAP PO SCH (11:51)
--- NOTE | 2019-03-03 13:45 | IPNPDOC ---
Date Seen The patient was seen on 03/03/19. Progress Note SUBJECTIVE: Patient was seen and examined this morning. She states that she is feeling much better and has been diuresing appropriately, She has no other new complaints today. Denies nausea vomiting diarrhea constipation. Would like to know when she can go home. OBJECTIVE PHYSICAL EXAMINATION: VITAL SIGNS: Please see below. GENERAL: Pleasant morbidly obese female laying on the bed speaking in complete sentences no acute distress no accessory muscle use HEENT: Moist mucous membranes no JVD CARDIOVASCULAR: S1 S2 regular rate possible 2/6 diastolic murmur at the right third intercostal space no additional heart sounds appreciated. RESPIRATORY: Improved aeration bilaterally. Clear to auscultate with no audible wheezing rhonchus or rales. ABDOMINAL: Bowel sounds present abdomen soft and nontender EXTREMITIES: No clubbing cyanosis or edema NEUROLOGICAL: Spontaneously moves all 4 extremities cranial 2 through 12 grossly intact no gross focal deficits appreciated PSYCHOLOGICAL: Appropriate LABORATORY DATA, MICROBIOLOGY: Please see below. IMAGING STUDIES: ASSESSMENT AND PLAN: This is a 23-bhfj-uiz-year-old female with acute congestive heart failure PROBLEMS: 1. Acute CHF -Clinically improved with Lasix. transition to home dose -Echocardiogram report pending to assess ejection fraction - Continue with lisinopril, spironalactone and statins - Monitor electrolytes and replenish as needed -Based on echocardiogram will decide beta blockers are indicated for mortality benefit 2. Type B Lactic acidosis likely secondary congestive heart failure well refer to plan above 3. Hypertension. - c/w lisinopril, spironolactone - transition to home dose 4. Diabetes mellitus - c/w ISS - Shes been on Januvia for 1 year without any acute exacerbations but there is a documented side effect of heart failure with this drug class therefore will mo nitor volume status while on this. 5. Acute valvular regurgitation -echocardiogram pending 6. Hyperlipidemia - c/w Pravastatin 7. Migraines - c/w nortriptyline and zonisamide 8.GERD -c/w Omeprazole 9. Depression -c/w Lexaopro 10. Seasonal Allergies -c/w Clartin DVT prophylaxis: Heparin DISPOSITION: Discharge in 24 hours pending volume status VS, I&O, 24H, Fishbone Vital Signs/I&O Vital Signs Date Time Temp Pulse Resp B/P (MAP) Pulse Ox O2 Delivery O2 Flow Rate FiO2 03/03/19 12:00 98.6 83 20 106/57 (73) 95 Room Air 03/03/19 08:19 3.0 I&O- Last 24 Hours up to 6 AM 03/03/19 05:59 Intake Total 1420 ml Output Total 2400 ml Balance -980 ml Laboratory Data 24H LABS Laboratory Tests 2 03/02/19 17:22: Bedside Glucose (Misc Panel) 120H 03/02/19 20:20: Bedside Glucose (Misc Panel) 136H 03/03/19 05:19: Nucleated Red Blood Cells % (auto) 0.0, Anion Gap 9, Glomerular Filtration Rate 25.3L, Calcium Level 8.6L 03/03/19 11:35: Bedside Glucose (Misc Panel) 124H CBC/BMP Laboratory Tests 03/03/19 05:19 Microbiology Microbiology 03/01/19 Blood Culture - Preliminary, Resulted No Growth after 48 hours. All Specime... 03/01/19 Blood Culture - Preliminary, Resulted No Growth after 48 hours. All Specime... GME ATTESTATION GME ATTESTATION My faculty preceptor for this patient encounter was physically present during the encounter and was fully available. All aspects of the patient interview, examination, medical decision making process, and medical care plan development were reviewed and approved by the faculty preceptor. The faculty preceptor is aware and concurs with the plan as stated in the body of this note and will attest to such by his/her cosignature. ATTENDING NOTE Patient was seen and examined by me this morning with the residents. Agree with the above assessment and plan JARVIS DAWSON DO Mar 03, 2019 13:45 SHILPA CIFUENTES MD Mar 03, 2019 13:52
[2019-03-03] MEDS ORDERED: FUROSEMIDE 40 MG/4 ML VIAL (J1940) IV SCH (17:00)
[2019-03-03] MEDS: FUROSEMIDE 20 MG TAB PO SCH (20:26)
[2019-03-03] MEDS: traMADol 50 MG TAB PO PRN (20:27)
[2019-03-04 04:00] VITALS: BP 138/65
[2019-03-04] MEDS: HEPARIN SOD (PORCINE) 5000 UNITS/ML VIAL SC SCH (04:31)
[2019-03-04 05:55] LABS: HEMATOCRIT 43.3 % (36.0-47.0); HEMOGLOBIN 13.5 g/dl (12.0-15.5); MEAN CORPUSCULAR HEMOGLOBIN 29.9 pg (27.0-33.0); MEAN CORPUSCULAR HGB CONC 31.2 g/dl (32.0-36.5); PLATELET COUNT, AUTOMATED 418 10^3/uL (150-450); RED BLOOD COUNT 4.51 10^6/uL (4.00-5.40); WHITE BLOOD COUNT 11.4 10^3/uL (4.0-10.0)
[2019-03-04 06:13] LABS: CREATININE FOR GFR 2.41 MG/DL (0.55-1.30); GLOMERULAR FILTRATION RATE 21.7 (>45); POTASSIUM SERUM 5.2 MEQ/L (3.5-5.1)
[2019-03-04] MEDS: SLF 3 ML SYR IV SCH (06:17)
[2019-03-04] MEDS: TIOTROPIUM INHALER/CAPSULE (SPIRIVA) INH SCH (07:49)
[2019-03-04 08:00] VITALS: BP 124/56
--- NOTE | 2019-03-04 08:08 | ECHO ---
DATE OF PROCEDURE: 03/03/2019 REFERRING PHYSICIAN: Dr. Vyas INDICATON: Congestive heart failure. HEIGHT: 163 cm WEIGHT: 92 kg DIMENSIONS: IVS: 1.5 LV: 4.7 LVPW: 1.5 LA: 4.5 Aorta: 3.0 Left atrial volume index: 29 Mitral E wave velocity: 96, A wave: 74 Tissue Doppler velocities of mitral annulus were not performed. IVC: 1.3 FINDINGS: The study is of acceptable technical quality. Patient is in sinus rhythm. Left ventricle is normal size and preserved systolic function, estimated left ventricular ejection fraction (LVEF) 65-70%. Moderate left ventricular hypertrophy is present. Right ventricle appears normal size and systolic function. Left atrium is mildly enlarged. Right atrium appears normal size. There are mild degenerative abnormalities of aortic valve with prominence sclerosis and trivial restriction of cusp mobility. There are also mild degenerative abnormalities of mitral valve but mobility of leaflets is preserved. Tricuspid and pulmonic valves appear normal. No pericardial effusion is noted. Inferior vena cava is relatively small size. Aortic root appears normal. Aortic arch and abdominal aorta were not seen. Doppler interrogation of aortic valve reveals trivial stenosis with mean gradient 7 mmHg and mild insufficiency. There is also mild mitral and tricuspid insufficiency. Calculated pulmonary artery pressure is around 40 mmHg that would correspond to mild to moderate pulmonary hypertension. Pulmonic valve is functionally competent. There is normal mitral inflow pattern, but tissue Doppler velocities were not performed. Considering left atrial enlargement and prominent left ventricular hypertrophy I suspect that most likely patient has grade 2 diastolic dysfunction but it is not definite. CONCLUSIONS: 1. Study is of acceptable technical quality. 2. Normal LV size with moderate left ventricular hypertrophy (LVH) and preserved LV systolic function. 3. No hemodynamically significant valvular disease. 4. Normal central venous pressure and mild to moderate pulmonary hypertension. COMMENT: Subacute bacterial endocarditis (SBE) prophylaxis is not recommended. The study is most consistent with hypertensive heart disease.
[2019-03-04] MEDS ORDERED: LASI20TA3 PO (08:31)
[2019-03-04] MEDS: HumaLOG INSULIN (NovoLOG) PER UNIT SC SCH (08:34)
[2019-03-04] MEDS: PRAVASTATIN 20 MG TAB PO SCH (08:35)
[2019-03-04] MEDS: ASPIRIN 81 MG ENTERIC TAB PO SCH (08:35)
[2019-03-04] MEDS: NORTRIPTYLINE 25 MG CAP PO SCH (08:35)
[2019-03-04] MEDS: HYDROXYCHLOROQUINE 200 MG TAB PO SCH (08:35)
[2019-03-04] MEDS: OMEPRAZOLE 20 MG CAP PO SCH (08:36)
[2019-03-04] MEDS: LORATADINE 10 MG TAB PO SCH (08:36)
[2019-03-04] MEDS: FUROSEMIDE 20 MG TAB PO SCH (08:36)
[2019-03-04] MEDS: CYANOCOBALAMIN 500 MCG TAB PO SCH (08:36)
[2019-03-04] MEDS: ESCITALOPRAM OXALATE 10 MG TAB (LEXAPRO) PO SCH (08:36)
[2019-03-04] MEDS: DOCUSATE SODIUM 100 MG CAP PO SCH (08:36)
[2019-03-04] MEDS: GABAPENTIN 300 MG CAP PO SCH (08:36)
[2019-03-04 08:37] VITALS: BP 124/56
[2019-03-04] MEDS: MAGNESIUM OXIDE 400 MG TAB (MAG-OX) PO SCH (08:37)
[2019-03-04] MEDS: SITagliptin 50 MG TAB (JANUVIA) PO SCH (08:37)
[2019-03-04] MEDS: LISINOPRIL 5 MG TAB PO SCH (08:37)
[2019-03-04] MEDS: FERROUS SULFATE 325MG TAB PO SCH (08:37)
[2019-03-04] MEDS: SPIRONOLACTONE 25 MG TAB PO SCH (08:38)
[2019-03-04] MEDS: ZONISAMIDE 50 MG CAP (ZONEGRAN) PO SCH (08:38)
[2019-03-04] MEDS ORDERED: AMLO10TA PO (10:29)
--- NOTE | 2019-03-04 11:23 | DS.PDOC ---
Discharge Summary General Date of Admission Mar 01, 2019 at 11:30 Date of Discharge 03/04/2019 Discharge Summary DISCHARGE DIAGNOSIS: Acute diastolic CHF SECONDARY DIAGNOSIS: Type B Lactic acidosis likely secondary congestive heart failure well refer to plan above Chronic kidney disease stage III (eGFR: 21-46) Hypertension. Diabetes mellitus Acute valvular regurgitation Hyperlipidemia Migraines GERD Depression Seasonal Allergies PROCEDURES PERFORMED DURING STAY: None CONSULTANTS:None HOSPITAL COURSE: While the patient was hospitalized she was started on IV Lasix for she was hypervolemic. When fully make status was achieved adjustments were made with her home medications. We discontinued her spironolactone and her potassium that she takes at home for she had hyperkalemia on the day of discharge. Because echocardiogram was consistent with hypertensive disease we started her on amlodipine 10 mg daily and a refill of her Lasix 20 mg twice a day was sent. Advised the patient to follow-up with her primary care provider to recheck BMP in 3 days. On the day of discharge she was stable to go home. DISCHARGE MEDICATIONS: Please see below. ALLERGIES: Please see below. SUBJECTIVE: Patient was seen and examined this morning. She has no complaints today. She is feeling much better and is back to baseline. She would like to go home. She denies chest pain, shortness, breath, nausea, vomiting, fevers, chills. OBJECTIVE PHYSICAL EXAMINATION: VITAL SIGNS: Please see below. GENERAL: Pleasant morbidly obese female sitting up speaking in complete sentences no acute distress no accessory muscle use HEENT: Moist mucous membranes no JVD CARDIOVASCULAR: S1 S2 regular rate possible 2/6 diastolic murmur at the right third intercostal space no additional heart sounds appreciated. RESPIRATORY: Clear to auscultate bilaterally no audible wheezing rhonchi or rales ABDOMINAL: Bowel sounds present abdomen soft and nontender EXTREMITIES: No clubbing cyanosis or edema NEUROLOGICAL: Spontaneously moves all 4 extremities cranial 2 through 12 grossly intact no gross focal deficits appreciated PSYCHOLOGICAL: Appropriate LABORATORY DATA, MICROBIOLOGY: Please see below. IMAGING STUDIES: 03/01/2019 Chest x-ray Impression: Cardiomegaly. Post thoracotomy changes on the right. Vascular congestion. CTA No CT evidence of pulmonary embolus. Biapical bullae. Post thoracotomy suture lines in the right apex. Right middle lobe linear fibrosis. Cardiomegaly. Post splenectomy. ECHOCARDIOGRAM: Echocardiogram 03/03/19 Dr. Larson CONCLUSIONS: 1. Study is of acceptable technical quality. 2. Normal LV size with moderate left ventricular hypertrophy (LVH) and preserved LV systolic function. 3. No hemodynamically significant valvular disease. 4. Normal central venous pressure and mild to moderate pulmonary hypertension. 5. The study is most consistent with hypertensive heart disease. DVT prophylaxis ordered: Heparin SQ ASSESSMENT AND PLAN: This is a 64-etom-avl-year-old female with acute congestive heart failure PROBLEMS: Acute CHF -Clinically improved with Lasix. transition to home dose -Echocardiogram completed - Continue with lisinopril and statins - Monitor electrolytes and replenish as needed -Based on echocardiogram will decide beta blockers are indicated for mortality benefit Type B Lactic acidosis likely secondary congestive heart failure well refer to plan above Hyperkalemia - Like a secondary to spironolactone. - Echocardiogram and cystoscopy with hypertensive disease ejection fraction 65- 70% - Spironolactone not indicated discontinued home spironolactone and potassium Hypertension. - c/w lisinopril, - Start amlodipine 10 mg daily - Discussed with patient that she can titrate her lisinopril to a maximum dose to achieve better hypertensive control if she has a side effect of lower extreme edema with amlodipine. Advised to discuss with primary care provider. Diabetes mellitus - c/w ISS - Shes been on Januvia for 1 year without any acute exacerbations but there is a documented side effect of heart failure with this drug class therefore will monitor volume status while on this. Acute valvular regurgitation Hyperlipidemia - c/w Pravastatin Migraines - c/w nortriptyline and zonisamide GERD -c/w Omeprazole Depression -c/w Lexaopro Seasonal Allergies -c/w Clartin DISCHARGE CONDITION: Improved and Stable. PROGNOSIS: Fair FOLLOW UP: With PCP 7 days. ACTIVITY: As prior to admission. DIET: As prior to admission TIME SPENT ON DISCHARGE: 50 minutes Vital Signs/I&Os Vital Signs Date Time Temp Pulse Resp B/P (MAP) Pulse Ox O2 Delivery O2 Flow Rate FiO2 03/04/19 08:37 124/56 03/04/19 08:00 98.6 77 18 91 Room Air 03/03/19 08:19 3.0 I&O- Last 24 Hours up to 6 AM 03/04/19 06:00 Intake Total 2092 ml Output Total 1250 ml Balance 842 ml Laboratory Data Labs 24H Laboratory Tests 2 03/03/19 11:35: Bedside Glucose (Misc Panel) 124H 03/03/19 16:55: Bedside Glucose (Misc Panel) 154H 03/03/19 20:33: Bedside Glucose (Misc Panel) 125H 03/04/19 05:24: Nucleated Red Blood Cells % (auto) 0.0, Anion Gap 6L, Glomerular Filtration Rate 21.7L, Calcium Level 9.0 CBC/BMP Laboratory Tests 03/04/19 05:24 FSBS Laboratory Tests Test 03/03/19 11:35 03/03/19 16:55 03/03/19 20:33 Range/Units Bedside Glucose (Misc Panel) 124 154 125 80-115 MG/DL Microbiology Microbiology 03/01/19 Blood Culture - Preliminary, Resulted No Growth after 72 hours. All specime... 03/01/19 Blood Culture - Preliminary, Resulted No Growth after 72 hours. All specime... Discharge Medications Scheduled Amlodipine Besylate (Norvasc) 10 Mg Tablet, 1 TAB PO DAILY Aspirin (Aspir 81) 81 Mg Tab, 81 MG PO DAILY, (Reported) Cyanocobalamin (Vitamin B-12) (Vitamin B-12) 500 Mcg Tab, 1,000 MCG PO DAILY, (Reported) Escitalopram Oxalate (Lexapro) 20 Mg Tab, 20 MG PO DAILY, (Reported) Ferrous Sulfate (Ferrous Sulfate) 325 Mg Tab, 325 MG PO DAILY, (Reported) Furosemide (Lasix) 20 Mg Tab, 20 MG PO BID Gabapentin (Gabapentin) 300 Mg Capsule, 300 MG PO QID, (Reported) Hydroxychloroquine Sulfate (Hydroxychloroquine Sulfate) 200 Mg Tablet, 200 MG PO BID, (Reported) Lisinopril (Lisinopril) 5 Mg Tablet, 5 MG PO DAILY, (Reported) Loratadine (Claritin) 10 Mg Cap, 10 MG PO DAILY, (Reported) Magnesium Oxide (Magnesium) 400 Mg Cap, 400 MG PO BID, (Reported) Mometasone/Formoterol (Dulera 200 Mcg/5 Mcg Inhaler) 1 Aer Aer, 2 PUFFS INH BID, (Reported) Nortriptyline HCl (Pamelor) 50 Mg Cap, 50 MG PO DAILY, (Reported) Omeprazole (Omeprazole) 40 Mg Cap, 40 MG PO DAILY, (Reported) Pravastatin Sodium (Pravastatin Sodium) 20 Mg Tab, 20 MG PO DAILY, (Reported) Sitagliptin Phosphate (Januvia) 100 Mg Tablet, 50 MG PO DAILY, (Reported) Tiotropium [place] Monohydrate (Spiriva) 5 Inhalation/Inhaler Powd, 2 PUFF INH DAILY, (Reported) Ubidecarenone (Coq-10) 100 Mg Capsule, 100 MG PO DAILY, (Reported) Zonisamide (Zonisamide) 50 Mg Capsule, 50 MG PO DAILY, (Reported) Scheduled PRN Albuterol Sulfate (Ventolin Hfa) 108 Mcg/Act Aer, 108 MCG IN PRN PRN for SHORTNESS OF BREATH, (Reported) Ipratropium/Albuterol Sulfate (Iprat-Albut 0.5-3(2.5) mg/3 ml) 3 Ml Ampul.neb, 1 ANTHONY NEB QID PRN for SOB/WHEEZING, (Reported) Tramadol HCl (Tramadol HCl) 50 Mg Tablet, 50 MG PO for PAIN, (Reported) Allergies Coded Allergies: Sulfa (Sulfonamide Antibiotics) (Verified Allergy, Intermediate, swelling, 07/17/18) amphotericin B (Verified Allergy, Intermediate, rigors, 09/18/18) clarithromycin (Verified Allergy, Intermediate, rash, 07/17/18) sulfamethoxazole (Verified Allergy, Intermediate, swelling, rash, 07/17/18) trimethoprim (Verified Allergy, Intermediate, swelling, rash, 07/17/18) GME ATTESTATION GME ATTESTATION My faculty preceptor for this patient encounter was physically present during the encounter and was fully available. All aspects of the patient interview, examination, medical decision making process, and medical care plan development were reviewed and approved by the faculty preceptor. The faculty preceptor is aware and concurs with the plan as stated in the body of this note and will attest to such by his/her cosignature. ATTENDING NOTE Patient was seen and examined by me this morning with the residents. Agree with the above assessment and plan JARVIS DAWSON DO Mar 04, 2019 11:23 SHILPA CIFUENTES MD Mar 04, 2019 14:24
== END 2019-03-04 11:34 | disposition home or self-care (01) | DRG 291 ==
LOC: M ED 07:01 → M ED INP 11:30 → M PCU 03-02 21:57
PROVIDERS: ADMIT Internal Medicine; ATTEND Internal Medicine
DX: I13.0 Hypertensive heart and chronic kidney disease with heart failure and stage 1 through stage 4 chronic kidney disease, or unspecified chronic kidney disease (principal); I50.31 Acute diastolic (congestive) heart failure; E87.2 Acidosis; N18.3 Chronic kidney disease, stage 3 (moderate); E11.9 Type 2 diabetes mellitus without complications; E78.5 Hyperlipidemia, unspecified; G43.909 Migraine, unspecified, not intractable, without status migrainosus; K21.9 Gastro-esophageal reflux disease without esophagitis; F32.9 Major depressive disorder, single episode, unspecified; E87.70 Fluid overload, unspecified; E87.5 Hyperkalemia; Z79.82 Long term (current) use of aspirin; Z79.899 Other long term (current) drug therapy; Z88.2 Allergy status to sulfonamides; Z88.8 Allergy status to other drugs, medicaments and biological substances; G47.33 Obstructive sleep apnea (adult) (pediatric); J44.9 Chronic obstructive pulmonary disease, unspecified; L40.50 Arthropathic psoriasis, unspecified; I35.0 Nonrheumatic aortic (valve) stenosis

== ENCOUNTER → 2019-04-27 | Outpatient (CLI) | payer MEDICARE ==
[~2019-04-27] MED LIST changes: +AMLO10TA PO; +GABA-843 PO; +HYDR200T3 PO; +IPRA0.00 NEB; +JANU100T PO; +TRAM50TA2 PO; +ZONI25CA13 PO; -ZONI25CA2 PO; +ZONI50CA PO
[2019-04-27 16:55] LABS: ALBUMIN 3.6 GM/DL (3.2-5.2); BILIRUBIN,TOTAL 0.6 MG/DL (0.2-1.0); CALCIUM LEVEL 9.1 MG/DL (8.8-10.2); CREATININE FOR GFR 1.55 MG/DL (0.55-1.30); GLOMERULAR FILTRATION RATE 36.2 (>45); POTASSIUM SERUM 4.4 MEQ/L (3.5-5.1); TOTAL PROTEIN 7.5 GM/DL (6.4-8.2)
== END ==
LOC: M WUC 12:08
PROVIDERS: ATTEND Internal Medicine
DX: I50.30 Unspecified diastolic (congestive) heart failure (principal)

== ENCOUNTER 2019-05-18 11:21 | Inpatient (IN) | payer MEDICARE, OTHER ==
[~2019-05-18] VITALS: Ht 162.6 cm; Wt 90.2 kg
[~2019-05-18 11:21] MED LIST changes: +IPRA0.00 INH; -IPRA0.00 NEB; -VENTAER IN; +VENTAER INH
--- NOTE | 2019-05-18 12:25 | REP ---
Portable chest, 11:47 a.m. , single AP view with the patient sitting: Comparison is 03/01/2019. Surgical staple lines are identified medially in the right upper lobe. This is unchanged. The there is a parenchymal scar inferiorly in the right lung, unchanged. There is diffuse bilateral interstitial coarsening, unchanged. This could represent chronic vascular congestion or chronic lung disease. There are no focal infiltrates or pleural effusions. Cardiac size is enlarged, unchanged. The sherice, mediastinum and skeletal structures are unchanged. Impression: There are no new or acute cardiopulmonary findings. There are chronic findings as described. Electronically Signed by Darell Ibarra MD 05/18/2019 12:17 P
[2019-05-18] MEDS ORDERED: SPIR-10 PO (12:32)
[2019-05-18 12:33] LABS: BASO # 0.1 10^3/uL (0.0-0.2); BASO % 0.6 % (0.0-1.0); EOS # 0.2 10^3/uL (0.0-0.5); EOS % 1.6 % (0.0-3.0); HEMATOCRIT 43.1 % (36.0-47.0); HEMOGLOBIN 13.5 g/dl (12.0-15.5); LYMPH # 2.3 10^3/uL (1.5-5.0); LYMPH % 23.8 % (24.0-44.0); MEAN CORPUSCULAR HEMOGLOBIN 29.8 pg (27.0-33.0); MEAN CORPUSCULAR HGB CONC 31.3 g/dl (32.0-36.5); MEAN CORPUSCULAR VOLUME 95.1 fl (80.0-96.0); MONO # 0.8 10^3/uL (0.0-0.8); MONO % 8.7 % (0.0-5.0); NEUTROPHILS # 6.3 10^3/uL (1.5-8.5); NEUTROPHILS % 64.8 % (36.0-66.0); PLATELET COUNT, AUTOMATED 410 10^3/uL (150-450); RED BLOOD COUNT 4.53 10^6/uL (4.00-5.40); WHITE BLOOD COUNT 9.7 10^3/uL (4.0-10.0)
[2019-05-18 13:03] LABS: CALCIUM LEVEL 8.7 MG/DL (8.8-10.2); CK-MB VALUE MASS 1.4 NG/ML (<3.6); CREATININE FOR GFR 1.88 MG/DL (0.55-1.30); MB/CK RELATIVE INDEX 1.4 (< OR =4); POTASSIUM SERUM 4.7 MEQ/L (3.5-5.1); TROPONIN I 0.03 NG/ML (< 0.10)
--- NOTE | 2019-05-18 13:25 | REP ---
CT of the brain without IV contrast: Comparison is 07/04/2015. There is no acute intracranial hemorrhage. There is no edema, mass effect or midline shift. Ventricles are normal size. The cortical stripe is unremarkable. There are areas of lucency in the subcortical white matter compatible with chronic microvascular disease. There is no change from the prior study. Impression: No acute hemorrhage, edema, mass effect or midline shift. There are findings compatible with chronic small vessel disease. No change from the prior study. Electronically Signed by Darell Ibarra MD 05/18/2019 01:16 P
[2019-05-18] MEDS ORDERED: SPIR12.9 INH (14:12)
[2019-05-18] MEDS ORDERED: FURO20TA2 PO (14:12)
[2019-05-18] MEDS ORDERED: ASPIRIN 325 MG TAB PO ONE (14:30)
[2019-05-18] MEDS ORDERED: traMADol 50 MG TAB PO PRN (14:30)
[2019-05-18] MEDS ORDERED: FERROUS SULFATE 325MG TAB PO SCH (14:30)
[2019-05-18] MEDS ORDERED: ACETAMINOPHEN TAB 650MG DOSE (2X325MG) PO PRN (14:45)
[2019-05-18] MEDS ORDERED: GLUCOSE 4 GM CHEW TABLET PO PRN (14:45)
[2019-05-18] MEDS ORDERED: GLUCAGON FOR INJ 1 MG VIAL (J1610) SC PRN (14:45)
[2019-05-18] MEDS ORDERED: DEXTROSE 50% 50 ML SYRINGE IV PRN (14:45)
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
[2019-05-18] MEDS: GABAPENTIN 300 MG CAP PO SCH ×2 (16:00→21:07)
[2019-05-18] MEDS: HumaLOG INSULIN (NovoLOG) PER UNIT SC SCH (17:30)
[2019-05-18 18:21] VITALS: BP 189/91
[2019-05-18 18:30] LABS: CK-MB VALUE MASS < 1.0 NG/ML (<3.6); CPK CREATINE PHOSPHOKINASE 62 U/L (26-192); MB/CK RELATIVE INDEX 1.61 (< OR =4); TROPONIN I 0.04 NG/ML (< 0.10)
[2019-05-18] MEDS ORDERED: SLF 3 ML SYR IV PRN (19:00)
--- NOTE | 2019-05-18 19:14 | ECGEPIP ---
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
--- NOTE | 2019-05-18 19:57 | REPVR ---
PROCEDURE INFORMATION: Exam: MR Head Without Contrast Exam date and time: 05/18/2019 2:32 PM Age: 59 years old Clinical indication: Visual disturbance; Additional info: Transient visual loss TECHNIQUE: Imaging protocol: MR of the head without contrast. COMPARISON: CT Head without contrast 05/18/2019 1:06 PM FINDINGS: Brain: Multiple foci of T2 lengthening are demonstrated in the subcortical, periventricular, centrum semiovale, and pontine white matter consistent with age-related small vessel gliosis. Ventricles: Normal. No ventriculomegaly. Bones/joints: Unremarkable. Soft tissues: Unremarkable. Sinuses: Normal as visualized. No acute sinusitis. Mastoid air cells: Normal as visualized. No mastoid effusion. Orbits: Unremarkable. IMPRESSION: 1. Multiple foci of T2 lengthening are demonstrated in the subcortical, periventricular, centrum semiovale, and pontine white matter consistent with age-related small vessel gliosis. 2. No acute findings. Electronically signed by: Salas Pedersen On 05/18/2019 19:57:17 PM
--- NOTE | 2019-05-18 20:01 | REPVR ---
PROCEDURE INFORMATION: Exam: MR Angiogram Head Without Contrast, Arteries Exam date and time: 05/18/2019 2:32 PM Age: 59 years old Clinical indication: Visual disturbance; Sudden visual loss; Additional info: Transient visual loss TECHNIQUE: Imaging protocol: MR angiogram head without contrast. Exam focused on the arteries. COMPARISON: CT Head without contrast 05/18/2019 1:06 PM FINDINGS: Right internal carotid artery: Unremarkable. Intracranial segment is patent with no significant stenosis. No aneurysm. Right anterior cerebral artery: Unremarkable. No occlusion or significant stenosis. No aneurysm. Right middle cerebral artery: Unremarkable. No occlusion or significant stenosis. No aneurysm. Right posterior cerebral artery: Persistent origin right posterior cerebral artery. Decreased caliber of the P4 and P5 segments of the right posterior cerebral artery. Right vertebral artery: Unremarkable. No occlusion or significant stenosis. No aneurysm. Left internal carotid artery: Unremarkable. Intracranial segment is patent with no significant stenosis. No aneurysm. Left anterior cerebral artery: Unremarkable. No occlusion or significant stenosis. No aneurysm. Left middle cerebral artery: Unremarkable. No occlusion or significant stenosis. No aneurysm. Left posterior cerebral artery: Persistent origin left posterior cerebral artery. Left vertebral artery: Unremarkable. No occlusion or significant stenosis. No aneurysm. Basilar artery: High-grade short-segment stenosis mid basilar artery. IMPRESSION: 1. High-grade short-segment stenosis mid basilar artery. 2. Decreased caliber of the P4 and P5 segments of the right posterior cerebral artery. Electronically signed by: Salas Pedersen On 05/18/2019 20:00:46 PM
[2019-05-18 20:30] VITALS: BP 136/72
--- NOTE | 2019-05-18 20:38 | REPVR ---
PROCEDURE INFORMATION: Exam: US Duplex Left Lower Extremity Veins, Limited Exam date and time: 05/18/2019 8:18 PM Age: 59 years old Clinical indication: Edema, localized; Lower extremity, left; Additional info: Asymmetric leg swelling TECHNIQUE: Imaging protocol: Real-time Duplex ultrasound of the Left Lower Extremity with 2-D rubio scale, color Doppler flow and spectral waveform analysis with image documentation. Limited exam focused on the left lower extremity veins. COMPARISON: No relevant prior studies available. FINDINGS: Left deep veins: Unremarkable. The common femoral, femoral, proximal profunda femoral and popliteal veins are patent without thrombus. Normal Doppler waveforms. Normal compressibility and/or augmentation response. Left superficial veins: Unremarkable. Saphenofemoral junction is patent without thrombus. Soft tissues: Lower leg edema. IMPRESSION: Lower leg edema. No DVT. Electronically signed by: Salas Pedersen On 05/18/2019 20:37:32 PM
--- NOTE | 2019-05-18 20:48 | REPVR ---
PROCEDURE INFORMATION: Exam: US Duplex Bilateral Extracranial Arteries Exam date and time: 05/18/2019 8:18 PM Age: 59 years old Clinical indication: Visual disturbance; Prior surgery; Surgery date: 6+ months; Surgery type: Lt endartectomy/patch; Additional info: Transient visual loss TECHNIQUE: Imaging protocol: Real-time Duplex ultrasound scan of the bilateral carotid and vertebral arteries combining rubio scale, color Doppler and spectral waveform analysis. Bilateral exam. COMPARISON: CT Head without contrast 05/18/2019 1:06 PM FINDINGS: Right common carotid artery: [id number] atherosclerotic changes distal CCA. Elevated peak systolic velocity in the proximal CCA measured at 316 cm per 2nd without evidence of any occlusion or stenosis. No occlusion or high-grade stenosis. Waveforms are normal. Right internal carotid artery: Moderate atherosclerotic changes. Elevated peak systolic velocity to 300 cm/s compatible with a severe stenosis although anatomically the stenosis appears moderate. Note that the peaks diastolic velocities are low. Biphasic waveform with spectral broadening. The Right ICA/CCA ratio: 0.95. Within normal limits. Right external carotid artery: Elevated velocity. No visible stenosis in the origin. Right vertebral artery: Unremarkable. Antegrade flow Left common carotid artery: Moderate atherosclerosis distally. Modestly elevated velocity of 146 cm/s. Spectral broadening. Left internal carotid artery: Status post endarterectomy. Peak systolic velocity 457 cm/s corresponding to a severe stenosis however anatomically this stenosis appears moderate. Note that the peak diastolic velocities are low. Biphasic waveform with spectral broadening. Left ICA/CCA ratio: Abnormal at 3.14. Left external carotid artery: Elevated velocity. No visible stenosis in the origin. Left vertebral artery: Unremarkable. Antegrade flow. IMPRESSION: 1. Status post carotid endarterectomy on the left. 2. Markedly elevated peak systolic velocities in the right and left internal carotid arteries suggesting high-grade stenosis bilaterally although anatomically both stenosis appear to be moderate. Elevated velocities may in part be related to tortuous vessels resulting in spurious readings. Also, the findings may be secondary to the presence of systolic hypertension as the peak diastolic velocities are low. Findings should be correlated clinically. 3. Elevated velocities at the proximal external carotid arteries bilaterally without a visible moderate or high-grade stenosis. REFERENCE: Carotid Stenosis Reference using SRU criteria: Mild: less than 50% stenosis. ICA PSV is less than 125 cm/second and plaque or intimal thickening is visible. Moderate: 50-69% stenosis. ICA PSV is 125 to 230 cm/second and plaque is visible. Severe: 70-94% stenosis. ICA PSV is more than 230 cm/second and visible plaque and lumen narrowing are seen. Near occlusion: 95-99% stenosis. ICA PSV is variable and significant plaque and luminal narrowing are seen. Occluded: 100% stenosis. No flow identified. Electronically signed by: Salas Pedersen On 05/18/2019 20:47:45 PM
[2019-05-18] MEDS ORDERED: HumaLOG INSULIN (NovoLOG) PER UNIT SC SCH (21:00)
[2019-05-18] MEDS: SLF 3 ML SYR IV SCH (21:07)
[2019-05-18] MEDS: MAGNESIUM OXIDE 400 MG TAB (MAG-OX) PO SCH (21:07)
[2019-05-18] MEDS: HEPARIN SOD (PORCINE) 5000 UNITS/ML VIAL (J1644 PER 1000UNITS) SC SCH (21:07)
[2019-05-18] MEDS: HYDROXYCHLOROQUINE 200 MG TAB PO SCH (21:07)
[2019-05-18] MEDS: ADVAIR HFA 230/21MCG INHALER INH SCH (21:45)
[2019-05-19] VITALS: BP 150/80
[2019-05-19 00:45] LABS: CK-MB VALUE MASS < 1.0 NG/ML (<3.6); CPK CREATINE PHOSPHOKINASE 68 U/L (26-192); MB/CK RELATIVE INDEX 1.47 (< OR =4); TROPONIN I 0.04 NG/ML (< 0.10)
[2019-05-19 04:00] VITALS: BP 142/65
[2019-05-19 05:51] LABS: BASO # 0.1 10^3/uL (0.0-0.2); BASO % 0.7 % (0.0-1.0); EOS # 0.2 10^3/uL (0.0-0.5); EOS % 1.9 % (0.0-3.0); HEMATOCRIT 40.6 % (36.0-47.0); HEMOGLOBIN 12.9 g/dl (12.0-15.5); LYMPH # 2.5 10^3/uL (1.5-5.0); MEAN CORPUSCULAR HEMOGLOBIN 30.2 pg (27.0-33.0); MEAN CORPUSCULAR HGB CONC 31.8 g/dl (32.0-36.5); MEAN CORPUSCULAR VOLUME 95.1 fl (80.0-96.0); MONO # 0.8 10^3/uL (0.0-0.8); MONO % 8.3 % (0.0-5.0); NEUTROPHILS # 5.9 10^3/uL (1.5-8.5); NEUTROPHILS % 62.7 % (36.0-66.0); PLATELET COUNT, AUTOMATED 391 10^3/uL (150-450); RED BLOOD COUNT 4.27 10^6/uL (4.00-5.40); WHITE BLOOD COUNT 9.4 10^3/uL (4.0-10.0)
[2019-05-19 06:16] LABS: CALCIUM LEVEL 8.2 MG/DL (8.8-10.2); CHOLESTEROL RISK RATIO 3.642 (<5); CREATININE FOR GFR 1.8 MG/DL (0.55-1.30); GLOMERULAR FILTRATION RATE 30.5 (>45); MAGNESIUM LEVEL 1.9 MG/DL (1.8-2.4)
[2019-05-19] MEDS: SLF 3 ML SYR IV SCH (06:20)
[2019-05-19] MEDS: HEPARIN SOD (PORCINE) 5000 UNITS/ML VIAL (J1644 PER 1000UNITS) SC SCH (06:20)
[2019-05-19 07:14] LABS: HEMOGLOBIN A1c 6.6 %
[2019-05-19] MEDS: TIOTROPIUM INHALER/CAPSULE (SPIRIVA) INH SCH ×2 (07:40→07:48)
[2019-05-19] MEDS: ADVAIR HFA 230/21MCG INHALER INH SCH (07:41)
[2019-05-19 08:00] VITALS: BP 139/104
[2019-05-19] MEDS ORDERED: ZONISAMIDE 50 MG CAP (ZONEGRAN) PO SCH (09:00)
[2019-05-19] MEDS ORDERED: lisinopriL 5 MG TAB PO SCH (09:00)
[2019-05-19] MEDS ORDERED: NORTRIPTYLINE 25 MG CAP PO SCH (09:00)
[2019-05-19] MEDS ORDERED: CYANOCOBALAMIN 500 MCG TAB PO SCH (09:00)
[2019-05-19] MEDS ORDERED: PRAVASTATIN 20 MG TAB PO SCH (09:00)
[2019-05-19] MEDS ORDERED: LORATADINE 10 MG TAB PO SCH (09:00)
[2019-05-19] MEDS ORDERED: ASPIRIN 325 MG TAB PO SCH (09:00)
[2019-05-19] MEDS ORDERED: FUROSEMIDE 20 MG TAB PO SCH (09:00)
[2019-05-19] MEDS ORDERED: OMEPRAZOLE 20 MG CAP PO SCH (09:00)
[2019-05-19] MEDS ORDERED: ESCITALOPRAM OXALATE 10 MG TAB (LEXAPRO) PO SCH (09:00)
[2019-05-19] MEDS ORDERED: SPIRONOLACTONE 25 MG TAB PO SCH (09:00)
[2019-05-19] MEDS: HumaLOG INSULIN (NovoLOG) PER UNIT SC SCH ×2 (09:30→12:00)
[2019-05-19] MEDS: MAGNESIUM OXIDE 400 MG TAB (MAG-OX) PO SCH (10:35)
[2019-05-19 10:36] VITALS: BP 150/84
[2019-05-19] MEDS: HYDROXYCHLOROQUINE 200 MG TAB PO SCH (10:37)
[2019-05-19] MEDS: GABAPENTIN 300 MG CAP PO SCH (10:38)
[2019-05-19 12:00] VITALS: BP 155/90
[2019-05-19] MEDS ORDERED: PLAV1TAB2 PO (15:18)
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
--- NOTE | 2019-05-19 23:33 | ECHO ---
DATE OF PROCEDURE: 05/19/2019 REFERRING PHYSICIAN: Dr. Khalif Quinoens INDICATION: Transient cerebral ischemia, unspecified. HEIGHT: 163 cm WEIGHT: 90 kg 2D MEASUREMENTS: Ventricular septum: 1.29 cm Posterior wall: 1.24 cm Left ventricle diastole: 4.9 cm Aortic root: 2.8 cm Left atrium: 4.7 cm Left atrial volume index: 31 Inferior vena cava: 2.0 cm with more than 50% respiratory variation. DOPPLER MEASUREMENTS: Mild aortic regurgitation. Aortic valve velocity: 186 cm/s LVOT velocity: 98.5 cm/s LVOT VTI: 21.0 cm Very mild mitral regurgitation. Mitral E velocity: 131 cm/s Mitral A velocity: 60.7 cm/s Mitral deceleration time: 180 ms E/A ratio: 2.2 Very mild tricuspid regurgitation. Estimated right ventricle systolic pressure: 73-78 mmHg assuming a pressure of 5-10 mmHg. Trace pulmonic regurgitation. MITRAL ANNULAR TISSUE DOPPLER: E prime lateral: 9.75 cm/s E prime septal: 5.26 cm/s DESCRIPTION: Rhythm was sinus. This was a moderately technically difficult echocardiogram. No pericardial effusion. This was a 2D, M-mode, color flow Doppler and pulse wave Doppler examination and included mitral annular tissue Doppler. CONCLUSIONS: 1. Mild concentric left ventricle hypertrophy. Normal regional LV wall motion and wall thickening. Normal LV systolic function. Left ventricular ejection fraction (LVEF) 65% by visual estimate. Restrictive diastolic filling pattern. 2. Suggestive of severe elevation of estimated right ventricle systolic pressure (73-78 mmHg). Very mild tricuspid regurgitation. Normal right ventricle size and systolic function. Grade 1 right ventricle diastolic dysfunction. 3. Moderate left atrial dilatation. 4. Mild aortic valve sclerosis of a 3-cusp aortic valve. Mild aortic regurgitation. No aortic stenosis. 5. Mild mitral annular calcification. Trace mitral regurgitation. 6. Moderately technically difficult echocardiogram.
== END 2019-05-19 13:53 | disposition home or self-care (01) | DRG 310 ==
LOC: M ED 11:21 → M ED INP 14:32 → ENRESERVDT 17:08 → ENRESERVTM 17:08 → M PCU 18:00
PROVIDERS: ADMIT Internal Medicine; ATTEND Internal Medicine
DX: R00.2 Palpitations (principal); R00.0 Tachycardia, unspecified; I12.9 Hypertensive chronic kidney disease with stage 1 through stage 4 chronic kidney disease, or unspecified chronic kidney disease; E78.5 Hyperlipidemia, unspecified; J44.9 Chronic obstructive pulmonary disease, unspecified; G47.33 Obstructive sleep apnea (adult) (pediatric); F34.1 Dysthymic disorder; L40.50 Arthropathic psoriasis, unspecified; K21.9 Gastro-esophageal reflux disease without esophagitis; N18.3 Chronic kidney disease, stage 3 (moderate); E11.40 Type 2 diabetes mellitus with diabetic neuropathy, unspecified; F07.81 Postconcussional syndrome; E11.22 Type 2 diabetes mellitus with diabetic chronic kidney disease; Z87.891 Personal history of nicotine dependence; Z79.82 Long term (current) use of aspirin; Z88.1 Allergy status to other antibiotic agents; Z88.2 Allergy status to sulfonamides; Z88.8 Allergy status to other drugs, medicaments and biological substances

== ENCOUNTER → 2019-11-12 | Outpatient (CLI) | payer MEDICARE ==
[~2019-11-12] MED LIST changes: -ASPI81TA85 PO; +ASPI81TA86 PO; +CYAN100T4 PO; -CYAN100T5 PO; +FURO20TA2 PO; +PLAV1TAB2 PO; +SPIR-10 PO; +SPIR12.9 INH
== END ==
LOC: M LABSMTC 10:30
PROVIDERS: ATTEND Internal Medicine Cardiovascular Disease
DX: Z20.828 Contact with and (suspected) exposure to other viral communicable diseases (principal)
CPT/HCPCS: C9803; U0002

== ENCOUNTER → 2019-11-18 | Outpatient (REF) | payer MEDICARE, OTHER ==
[2020-01-02 11:47] LABS: CREATININE FOR GFR 1.62 MG/DL (0.55-1.30); GLOMERULAR FILTRATION RATE 34.4 (>45)
== END ==
LOC: M LABWUC 08:25
PROVIDERS: ATTEND Internal Medicine Cardiovascular Disease
DX: Z79.899 Other long term (current) drug therapy (principal)